=== PATIENT | male | born 1965 | race Caucasian/White ===

== ENCOUNTER 2016-04-22 07:51 | Day surgery (SDC) | payer MEDICAID ==
[~2016-04-22] VITALS: Ht 180.3 cm; Wt 80.9 kg
[~2016-04-22 07:51] MED LIST: CIPR-9 PO; CLIN150 PO; HYDR-3533 PO; PANT20 PO
[2016-04-22] MEDS ORDERED: CHLORHEXIDINE GLUCONATE 2 % 1 PACK (2 CLOTHS) TOPICAL SCH (08:30)
[2016-04-22] MEDS ORDERED: LEVOFLOXACIN 500 MG PREMIX INJ 100 ML IV SCH (08:30)
[2016-04-22] MEDS ORDERED: VANCOMYCIN 1000 MG/NS 250 ML - implanted port/tunneled catheter IV SCH ×2 (08:30)
[2016-04-22 08:50] VITALS: BP 168/92; PULSE 88; RESP 20; TEMP 98.3; O2SAT 97
[2016-04-22] MEDS ORDERED: PRED10 PO (09:00)
[2016-04-22] MEDS: POVIDONE IODINE 5% (ANTISEPSIS KIT) 4 APPLICATIONS EACH NARE SCH ×2 (09:12→09:13)
[2016-04-22] MEDS ORDERED: MIDAZOLAM HCL 5 MG/5 ML VIAL ONE (10:08)
[2016-04-22] MEDS ORDERED: fentaNYL CITRATE 250 MCG/5 ML AMP ONE (10:08)
[2016-04-22] MEDS ORDERED: LIDOCAINE 1%/EPINEPHrine 1:100,000 SOLN 20 ML VIAL ONE (10:12)
[2016-04-22 10:50] VITALS: BP 146/76; PULSE 85; RESP 18; TEMP 98.1; O2SAT 99
--- NOTE | 2016-04-22 10:57 | PD.RAD ---
Post Procedure Progress Note Pre Procedure Diagnosis: (1) Tongue mass Post Procedure Diagnosis: (1) Tongue mass Procedure Date: Apr 22, 2016 Supervising Radiologist: Josesito Payan Proceduralist/Assist: Ella Yarbrough, RT(R), Brenda Stewart RT(R)() Anesthesia: Conscious Sedation Plan of Activity Patient to Unit: ROPU Patient Condition: Good See PACS Report for procedural detail/treatment Central Venous Access Device Procedure 1 Right Infusaport Placement single lumen Josesito Payan MD Apr 22, 2016 10:57
[2016-04-22] MEDS ORDERED: SODIUM CHLORIDE 0.9% FLUSH 5 ML FLUSH IVF PRN (11:00)
[2016-04-22 11:05] VITALS: BP 142/87; PULSE 85; RESP 18; O2SAT 99
--- NOTE | 2016-04-22 11:10 | RADRPT ---
EXAM DATE/TIME: 04/22/2016 09:40 [facility] COMPARISON: CT SOFT TISSUE NECK W CONTRAST, January 15, 2016, 16:13. INDICATIONS : Patient with a history of head and neck cancer, needs chemotherapy. MEDICAL HISTORY : Duodenal ulcer disease Head and neck cancer Gastritis Gastric outlet obstruction SURGICAL HISTORY : Lymph node biopsy Tonsillectomy Corneal laceration repair Rt. hip surgery ENCOUNTER: Initial ACUITY: 3 months PAIN SCORE: 5/10 LOCATION: Neck FLUORO TIME: 0.3 minutes SEDATION TIME: 30 minutes ACCESS: Right internal jugular vein SEDATION: 1.) 1 mg midazolam (Versed) IV 2.) 50 mcg fentanyl (Sublimaze) IV Prophylactic antibiotics were administered with appropriate pre-procedure timing. Vancomycin within 2 hours of procedure, Ancef (or alternative) within 1 hour of procedure. DEVICE: 1. 8 Macedonian single lumen Bard Power Port PROCEDURE : 1. Continuous pulse oximetry and EKG monitoring. 2. Intravenous conscious sedation. 3. Ultrasound guidance for venous access. 4. Fluoroscopic guided implantable central venous port placement. The patient was placed supine. The neck was prepped in sterile fashion. Full sterile technique was u sed, including cap, mask, sterile gloves and gown, and a large sterile sheet. Hand hygiene and 2% ch lorhexidine Betadine was utilized per protocol for cutaneous antisepsis with appropriate dry time for site. The skin and subcutaneous tissues were infiltrated with local anesthetic solution. Under direct ultrasound guidance, central venous access was accomplished in the targeted vessel. The ultrasound images depicting access guidance were stored and saved to PACS for permanent record. A s ubcutaneous pocket was created using blunt dissection. The port was introduced to the pocket. The c atheter tubing was fed through a subcutaneous tunnel to the venotomy site. The catheter tubing was c ut to a suitable length and then was introduced through a valved Peel-Away sheath and positioned with catheter tubing tip at the cavo-atrial junction level. The pocket incision was closed with subcutic ular Vicryl suture. Steri-Strips were applied. The port was flushed and locked with heparin solutio n per protocol. Sterile dressing was applied to the site. The patient tolerated the procedure well. Conscious sedation was performed with the prescribed dosages and duration as above. The patient yvonne ated the procedure well and there were no complications. EKG and oximetry remained stable throughout the procedure. The patient was sent to post anesthesia recovery in stable condition. CONCLUSION: Uncomplicated ultrasound and fluoroscopic guided implanted central venous port catheter placement as described in detail above. An 8 Macedonian Power port was placed. Josesito Payan MD on April 22, 2016 at 11:08 Board Certified Radiologist. This report was verified electronically.
[2016-04-22 11:35] VITALS: BP 135/86; PULSE 73; RESP 20; O2SAT 99
[2016-04-22 12:05] VITALS: BP 117/48; PULSE 64; RESP 20; O2SAT 98
[2016-04-22] MEDS ORDERED: ACETAMINOPHEN/HYDROcodone 325 MG/5 MG TAB PO ONE (13:00)
== END 2016-04-22 13:00 | disposition home or self-care (01) ==
LOC: HROP 07:51 → HRIP 07:52 → HROP 13:00
PROVIDERS: ATTEND Internal Medicine Hematology & Oncology
DX: C76.0 Malignant neoplasm of head, face and neck (principal); K29.70 Gastritis, unspecified, without bleeding
CPT/HCPCS: 36561; 76937; 77001; C1788; J1642; J2250; J3010; J3370; J7050

== ENCOUNTER 2016-04-25 06:31 | Day surgery (SDC) | payer MEDICAID ==
[~2016-04-25] VITALS: Ht 180.3 cm; Wt 80.9 kg
[2016-04-25] VITALS (7 sets, daily range): BP systolic 108–138; BP diastolic 57–89; PULSE 45–66; RESP 18–20; TEMP 98.3; O2SAT 96–97
[~2016-04-25 06:31] MED LIST changes: -CLIN150 PO; -PANT20 PO; +PRED10 PO
[2016-04-25] MEDS ORDERED: SODIUM CHLORIDE 0.9% 1000 ML IV SCH (07:45)
[2016-04-25] MEDS ORDERED: LEVOFLOXACIN 500 MG PREMIX INJ 100 ML IV PRN (07:45)
[2016-04-25] MEDS ORDERED: MIDAZOLAM HCL 5 MG/5 ML VIAL ONE (08:35)
[2016-04-25] MEDS ORDERED: fentaNYL CITRATE 250 MCG/5 ML AMP ONE (08:36)
[2016-04-25] MEDS ORDERED: GLUCAGON 1 MG/ML VIAL ONE (08:36)
--- NOTE | 2016-04-25 09:28 | PD.RAD ---
Post Procedure Progress Note Pre Procedure Diagnosis: (1) Tongue mass Post Procedure Diagnosis: (1) Tongue mass Procedure Date: Apr 25, 2016 Supervising Radiologist: Josesito Payan Proceduralist/Assist: Brenda Zavala RT(R), RT Martha(R)() Anesthesia: Conscious Sedation Plan of Activity Patient to Unit: ROPU Patient Condition: Good See PACS Report for procedural detail/treatment Feeding Tube Gastrostomy Placement Josesito Payan MD Apr 25, 2016 09:28
[2016-04-25] MEDS ORDERED: IOHEXOL 350 MG/ML 50 ML BTL (for RAD DIAG) G-TUBE ONE (09:43)
--- NOTE | 2016-04-25 09:43 | RADRPT ---
EXAM DATE/TIME: 04/25/2016 08:19 [facility] COMPARISON: No previous studies available for comparison. INDICATIONS : Patient with history of head and neck cancer in need of gastrostomy tube placement. MEDICAL HISTORY : 1.Head and neck cancer 2.Gastric outlet obstruction 3.Duodenal Ulcer 4.Gastritis SURGICAL HISTORY : 1.Right port placement 2.Endoscopy 3.Lymphnode biopsy 4.Laryngoscopy 5.Corneal lacration repair 6.Tonsillectomy 7.Tibial/Fibula repair ENCOUNTER: Subsequent ACUITY: 2 months PAIN SCORE: 0/10 FLUORO TIME: 0.3 minutes SEDATION TIME: 30 minutes CONTRAST: 15 cc Omnipaque (iohexol) 350 MEDICATION(S): 1.) 1 mcg fentanyl (Sublimaze) IV 2.) 100 mg midazolam (Versed) IV Intra-procedural antibiotics were given as prescribed above. DEVICE(S): 1.) 18 Fr gastrostomy tube PROCEDURE : 1. Limited abdominal ultrasound. 2. Fluoroscopically guided gastrostomy tube placement. 3. Conscious sedation with continuous EKG and oximetry monitoring. The risks, benefits and alternatives to the procedure were explained and verbal and written consent w as obtained. The site was prepped in sterile fashion. Full sterile technique was used, including ca p, mask, sterile gloves and gown and a large sterile sheet. Hand hygiene and 2% chlorhexidine and/or betadine/alcohol prep was utilized per protocol for cutaneous antisepsis. The skin and subcutaneous tissues were infiltrated with local anesthetic solution. Ultrasound was used to chiquita the position of the liver. The stomach was insufflated with room air. Th ree percutaneous fasteners were placed to secure the anterior gastric wall. A small incision was made between the fasteners. The stomach was accessed with an 18 gauge needle. A n 0.035 wire was advanced into the small bowel. The tract was dilated. The gastrostomy tube was int roduced through a peel-away sheath. The position was confirmed with an injection of contrast. Conscious sedation was performed with the prescribed dosages and duration as above. The patient yvonne ated the procedure well and there were no complications. EKG and oximetry remained stable throughout the procedure. The patient was sent to post anesthesia recovery in stable condition. CONCLUSION: Uncomplicated gastrostomy tube placement as above. Joessito Payan MD on April 25, 2016 at 9:42 Board Certified Radiologist. This report was verified electronically.
== END 2016-04-25 11:35 | disposition home or self-care (01) ==
LOC: HROP 06:31 → HRIP 06:32 → HROP 11:35
PROVIDERS: ATTEND Internal Medicine Hematology & Oncology
DX: C01 Malignant neoplasm of base of tongue (principal)
CPT/HCPCS: 49440; 76942; 99152; 99153; C1769; C1887; J1610; J1956; J2250; J3010; Q9967

== ENCOUNTER 2016-05-08 20:49 | Inpatient (IN) | payer MEDICAID ==
[~2016-05-08] VITALS: Ht 177.8 cm; Wt 73.4 kg
[2016-05-08 20:52] VITALS: BP 119/86; PULSE 114; RESP 22; TEMP 100.9; O2SAT 98
[2016-05-08] MEDS ORDERED: SODIUM CHLOR 0.9% 1000 ML INJ 1,000 ML IV ONE ×3 (20:56→23:00)
[2016-05-08 20:59] VITALS: RESP 17; O2SAT 97
[2016-05-08] MEDS ORDERED: ONDANSETRON HCL 4 MG/2 ML VIAL IVP ONE (21:00)
[2016-05-08] MEDS ORDERED: MORPHINE SULFATE 4 MG/ML INJ IV ONE (21:00)
[2016-05-08] MEDS ORDERED: SODIUM CHLORIDE 0.9% FLUSH 5 ML FLUSH IVF PRN (21:00)
[2016-05-08] MEDS ORDERED: ACETAMINOPHEN 325 MG TAB PO ONE (21:15)
--- NOTE | 2016-05-08 21:15 | PD ---
HPI Chief Complaint: GI Complaint Time Seen by Provider: 20:56 Travel History International Travel<30 days: No Contact w/Intl Traveler<30days: No Traveled to known affect area: No History of Present Illness HPI The patient is a 50-year-old male who presents to the emergency department via EMS for fever, nausea, vomiting, and diarrhea. The patient has a history of HPV throat cancer and is currently undergoing chemotherapy by his oncologist, Dr. Lindsay. The patient states his last dose of chemotherapy was last Friday, he is scheduled for chemotherapy next week. The patient denies any history of radiation therapy. The patient does complain of a 2 to three- day history of nausea, vomiting, and diarrhea with left lower quadrant abdominal pain that is now generalized. The patient states his diarrhea as loose, watery, brown, without any visible blood. The patient denies any history of clostridium difficile. The patient has been using the G-tube sporadically secondary to decreased swallowing, however, has not been using the G-tube today secondary to increasing pain. The patient's primary physician is Dr. Chopra. PFSH Past Medical History Cancer: Yes (LYMPHOMA) Cardiovascular Problems: No Chemotherapy: Yes (05/06/16) Diminished Hearing: No Endocrine: No Gastrointestinal Disorders: Yes (OCCASIONAL ABD PAINS - ULCER IN LARGE INTESTINE) Genitourinary: No Immune Disorder: No Musculoskeletal: No Neurologic: No Psychiatric: No Reproductive: No Immunizations Current: Yes Ulcer: Yes Tetanus Vaccination: < 5 Years Influenza Vaccination: No Past Surgical History AICD: No Eye Surgery: Yes (CORNEAL LAC REPAIR) Joint Replacement: No Pacemaker: No Tonsillectomy: Yes Other Surgery: Yes (PORT AND G TUBE) Social History Alcohol Use: No Tobacco Use: Yes (2PPD) Substance Use: No Allergies-Medications (Allergen,Severity, Reaction): Coded Allergies: Codeine (Verified Allergy, Intermediate, Hives, 05/08/16) Keflex (Unverified Allergy, Unknown, Hives, 05/08/16) Penicillin (Verified Allergy, Unknown, Hives, 05/08/16) *MDRO Multi-Drug Resistant Organism (Unverified Adverse Reaction, Unknown , MRSA, 05/08/16) MRSA (foot wound) - 10/2014, 03/17/16 Reported Meds & Prescriptions Reported Meds & Active Scripts Active Cipro (Ciprofloxacin HCl) 500 Mg Tab 500 Mg PO BID Lortab (Hydrocodone-Acetaminophen) 5-325 Mg Tab 1 Tab PO Q4H PRN Reported Prednisone 10 Mg Tab 10 Mg PO BID Review of Systems Except as stated in HPI: all other systems reviewed are Neg General / Constitutional: Positive: Fever (fever of 100.5 at home) HENT: No: Headaches Cardiovascular: No: Chest Pain or Discomfort Respiratory: No: Cough, Shortness of Breath Gastrointestinal: Positive: Nausea, Vomiting, Diarrhea, Abdominal Pain Genitourinary: No: Dysuria Musculoskeletal: Positive: Weakness Skin: No Rash Physical Exam Narrative GENERAL: Awake, alert, 50-year-old male who appears his stated age and is in no acute respiratory distress. SKIN: Warm and dry. HEAD: Atraumatic. Normocephalic. EYES: The left pupil is irregular from previous injury. The right pupil 3 mm and reactive. ENT: No nasal bleeding or discharge. Dry mucous membranes. NECK: Trachea midline. No JVD. CARDIOVASCULAR: Regular, tachycardic with a heart rate of 120. RESPIRATORY: No accessory muscle use. Clear to auscultation. Breath sounds equal bilaterally. GASTROINTESTINAL: Abdomen soft, G-tube in place. Left lower quadrant tenderness , but no significant tympany, rebound tenderness, or guarding. No rigidity noted. MUSCULOSKELETAL: No obvious deformities. No clubbing. No cyanosis. No edema. NEUROLOGICAL: Awake and alert. No obvious cranial nerve deficits. Motor grossly within normal limits. Normal speech. PSYCHIATRIC: Appropriate mood and affect; insight and judgment normal. Data Data Last Documented VS Vital Signs Date Time Temp Pulse Resp B/P Pulse Ox O2 Delivery O2 Flow Rate FiO2 05/08/16 22:40 16 05/08/16 21:59 104 138/87 95 Room Air 05/08/16 20:52 100.9 Orders Complete Blood Count With Diff (05/08/16 20:56) Comprehensive Metabolic Panel (05/08/16 20:56) Urinalysis - C+S If Indicated (05/08/16 20:56) Lipase (05/08/16 20:56) Ct Abd/Pel W/O Iv Contrast (05/08/16 ) Iv Access Insert/Monitor (05/08/16 20:56) Ecg Monitoring (05/08/16 20:56) Oximetry (05/08/16 20:56) Morphine Inj (Morphine Inj) (05/08/16 21:00) Ondansetron Inj (Zofran Inj) (05/08/16 21:00) Sodium Chlor 0.9% 1000 Ml Inj (Ns 1000 M (05/08/16 20:56) Sodium Chloride 0.9% Flush (Ns Flush) (05/08/16 21:00) C Diff Toxin Pcr (05/08/16 20:56) Enteric Path (Stool) (05/08/16 20:56) Chest, Single Ap (05/08/16 20:56) Acetaminophen (Tylenol) (05/08/16 21:15) Blood Culture (05/08/16 21:15) Lactic Acid (05/08/16 21:15) Influenzae A/B Antigen (05/08/16 21:15) Acetaminophen 650 Mg/20 Ml Liq (Tylenol (05/08/16 21:30) Ciprofloxacin 400 Mg Premix (Cipro 400 M (05/08/16 21:45) Metronidazole 500 Mg Inj (Flagyl 500 Mg (05/08/16 21:45) Sodium Chlor 0.9% 1000 Ml Inj (Ns 1000 M (05/08/16 22:45) Admit Order (Ed Use Only) (05/08/16 22:51) Sodium Chlor 0.9% 1000 Ml Inj (Ns 1000 M (05/08/16 23:00) Labs Laboratory Tests Test 05/08/16 21:45 White Blood Count 0.8 TH/MM3 Red Blood Count 5.10 MIL/MM3 Hemoglobin 15.4 GM/DL Hematocrit 45.3 % Mean Corpuscular Volume 88.9 FL Mean Corpuscular Hemoglobin 30.1 PG Mean Corpuscular Hemoglobin 33.9 % Concent Red Cell Distribution Width 12.6 % Platelet Count 97 TH/MM3 Mean Platelet Volume 8.9 FL Neutrophils (%) (Auto) % Lymphocytes (%) (Auto) % Monocytes (%) (Auto) % Eosinophils (%) (Auto) % Basophils (%) (Auto) % Neutrophils # (Auto) TH/MM3 Lymphocytes # (Auto) TH/MM3 Monocytes # (Auto) TH/MM3 Eosinophils # (Auto) TH/MM3 Basophils # (Auto) TH/MM3 CBC Comment AUTO DIFF Sodium Level 134 MEQ/L Potassium Level 3.6 MEQ/L Chloride Level 96 MEQ/L Carbon Dioxide Level 29.7 MEQ/L Anion Gap 8 MEQ/L Blood Urea Nitrogen 28 MG/DL Creatinine 1.08 MG/DL Estimat Glomerular Filtration 72 ML/MIN Rate Random Glucose 128 MG/DL Lactic Acid Level 1.9 mmol/L Calcium Level 9.1 MG/DL Total Bilirubin 1.3 MG/DL Aspartate Amino Transf 14 U/L (AST/SGOT) Alanine Aminotransferase 26 U/L (ALT/SGPT) Alkaline Phosphatase 103 U/L Total Protein 6.7 GM/DL Albumin 3.0 GM/DL Lipase 61 U/L MDM Medical Decision Making Medical Screen Exam Complete: Yes Emergency Medical Condition: Yes Medical Record Reviewed: Yes Interpretation(s) Last Impressions Chest X-Ray 05/08/162055 Signed Impressions: Service Date/Time: Sunday, May 08, 2016 21:14 - CONCLUSION: No acute disease. Lance Short MD Abdomen/Pelvis CT 05/08/16 0000 Signed Impressions: Service Date/Time: Sunday, May 08, 2016 21:09 - CONCLUSION: 1. Minimal inflammation involving the ascending colon where there is a large diverticula likely diverticulitis. There is also slight wall thickening of the ascending colon. There 2. Punctate nonobstructing bilateral renal calculi measuring to 3 mm. 3. Right kidney slightly atrophic containing renal cysts. 4. Percutaneous gastrostomy tube. Lance Short MD Laboratory Tests Test 05/08/16 21:45 White Blood Count 0.8 TH/MM3 Red Blood Count 5.10 MIL/MM3 Hemoglobin 15.4 GM/DL Hematocrit 45.3 % Mean Corpuscular Volume 88.9 FL Mean Corpuscular Hemoglobin 30.1 PG Mean Corpuscular Hemoglobin 33.9 % Concent Red Cell Distribution Width 12.6 % Platelet Count 97 TH/MM3 Mean Platelet Volume 8.9 FL Neutrophils (%) (Auto) % Lymphocytes (%) (Auto) % Monocytes (%) (Auto) % Eosinophils (%) (Auto) % Basophils (%) (Auto) % Neutrophils # (Auto) TH/MM3 Lymphocytes # (Auto) TH/MM3 Monocytes # (Auto) TH/MM3 Eosinophils # (Auto) TH/MM3 Basophils # (Auto) TH/MM3 CBC Comment AUTO DIFF Sodium Level 134 MEQ/L Potassium Level 3.6 MEQ/L Chloride Level 96 MEQ/L Carbon Dioxide Level 29.7 MEQ/L Anion Gap 8 MEQ/L Blood Urea Nitrogen 28 MG/DL Creatinine 1.08 MG/DL Estimat Glomerular Filtration 72 ML/MIN Rate Random Glucose 128 MG/DL Lactic Acid Level 1.9 mmol/L Calcium Level 9.1 MG/DL Total Bilirubin 1.3 MG/DL Aspartate Amino Transf 14 U/L (AST/SGOT) Alanine Aminotransferase 26 U/L (ALT/SGPT) Alkaline Phosphatase 103 U/L Total Protein 6.7 GM/DL Albumin 3.0 GM/DL Lipase 61 U/L Differential Diagnosis Differential diagnosis includes influenza, gastroenteritis, dehydration, sepsis , pneumonia, Clostridium difficile, chemotherapy side effect, pyelonephritis, electrolyte abnormality. Narrative Course IV was established, labs were drawn and sent, and the patient was placed on cardiac telemetry monitoring and continuous pulse oximetry monitoring. The patient was administered morphine, Zofran, and IV fluids. Blood culture and lactic acid were sent to lab. The patient was administered Tylenol via the G- tube for his fever. CT the abdomen and pelvis was ordered to evaluate for colitis. Influenza screen was sent to lab. CT of the abdomen and pelvis reveals diverticulitis. White count is low at 0.8, last white count was 1.0 performed on May 08, however, previous ones were normal. Patient is status post chemotherapy, according to Dr. Lindsay's note, 5-FU, Taxotere, and cisplatin. Therefore, patient was administered Cipro and Flagyl for diverticulitis, no cefepime was provided as the patient is allergic to Keflex. The patient was also administered IV fluids as he had a BUN of 28 and creatinine 1 with visible signs of dehydration. I discussed patient with Dr. Melo who is on-call for Dr. Lindsay, the patient will be admitted to the medical service. The patient's primary physician is Dr. Chopra, therefore , [facility] were paged for admission. The patient is comfortable with this plan of care and disposition. Sepsis Criteria SIRS Criteria (2 or more): Heart rate over 90, WBC > 40841, < 4000 or > 10% bands Sepsis Criteria (SIRS+source): Infect source susp/known Criteria Outcome: Meets sepsis criteria Physician Communication Physician Communication [facility] hospitalists were paged for admission. I discussed the patient with Casey MARQUEZ who agrees with admission to Dr. Cisse. Diagnosis Primary Impression: Diverticulitis large intestine Qualified Code: K57.32 - Diverticulitis of large intestine without perforation or abscess without bleeding Additional Impressions: Immunocompromised patient Dehydration Admitting Information Admitting Physician Requests: Admit Condition: Stable Zeferino Doe MD May 08, 2016 21:15
--- NOTE | 2016-05-08 21:21 | RADRPT ---
EXAM DATE/TIME: 05/08/2016 21:09 [facility] COMPARISON: No previous studies available for comparison. INDICATIONS : Abdominal pain with nausea, vomiting and diarrhea. ORAL CONTRAST: No oral contrast ingested. RADIATION DOSE: 5.24 CTDIvol (mGy) MEDICAL HISTORY : Lymphoma. Ulcers. MRSA. SURGICAL HISTORY : Port placement. G-tube placement. Right hip replacement. ENCOUNTER: Initial ACUITY: 1 day PAIN SCALE: 3/10 LOCATION: Bilateral lower quadrant TECHNIQUE: Volumetric scanning of the abdomen and pelvis was performed. Using automated exposure control and ad justment of the mA and/or kV according to patient size, radiation dose was kept as low as reasonably achievable to obtain optimal diagnostic quality images. FINDINGS: LOWER LUNGS: The visualized lower lungs are clear. LIVER: Homogeneous density without lesion. There is no dilation of the biliary tree. No calcified gallston es. SPLEEN: Normal size without lesion. PANCREAS: Within normal limits. KIDNEYS: Right kidney slightly atrophic. Several cysts involving the right kidney.. There is no mass or hydro nephrosis. Bilateral renal low densities. Punctate bilateral nonobstructing renal calculi. ADRENAL GLANDS: Within normal limits. VASCULAR: There is no aortic aneurysm. BOWEL/MESENTERY: Percutaneous gastrostomy tube. No dilated bowel loops. There is minimal inflammation adjacent to a la rge diverticula in the cecum. Slight wall thickening of ascending colon. Appendix is normal. There is no free intraperitoneal air or fluid. ABDOMINAL WALL: Within normal limits. RETROPERITONEUM: There is no lymphadenopathy. BLADDER: No wall thickening or mass. REPRODUCTIVE: Within normal limits. INGUINAL: There is no lymphadenopathy or hernia. MUSCULOSKELETAL: Within normal limits for patient age. CONCLUSION: 1. Minimal inflammation involving the ascending colon where there is a large diverticula likely diver ticulitis. There is also slight wall thickening of the ascending colon. There 2. Punctate nonobstructing bilateral renal calculi measuring to 3 mm. 3. Right kidney slightly atrophic containing renal cysts. 4. Percutaneous gastrostomy tube. Lance Short MD on May 08, 2016 at 21:17 Board Certified Radiologist. This report was verified electronically.
[2016-05-08] MEDS ORDERED: ACETAMINOPHEN 650 MG/20.3 ML UDC PO ONE (21:30)
[2016-05-08] MEDS ORDERED: CIPROFLOXACIN 400 MG PREMIX 200 ML IV ONE (21:45)
[2016-05-08] MEDS ORDERED: metroNIDAZOLE 500 MG INJ 100 ML IV ONE (21:45)
[2016-05-08 21:59] VITALS: BP 138/87; PULSE 104; RESP 16; O2SAT 95
--- NOTE | 2016-05-08 22:05 | RADRPT ---
EXAM DATE/TIME: 05/08/2016 21:14 [facility] COMPARISON: No previous studies available for comparison. INDICATIONS : Fever starting today MEDICAL HISTORY : Lymphoma. Ulcers. MRSA. SURGICAL HISTORY : Port placement. G-tube placement. Right hip replacement ENCOUNTER: Initial ACUITY: 1 day PAIN SCORE: 0/10 LOCATION: Bilateral chest FINDINGS: A single view of the chest demonstrates the lungs to be symmetrically aerated without evidence of mas s, infiltrate or effusion. [id number] catheter with tip in the cavoatrial junction. The cardiomed iastinal contours are unremarkable. Osseous structures are intact. CONCLUSION: No acute disease. Lance Short MD on May 08, 2016 at 22:03 Board Certified Radiologist. This report was verified electronically.
[2016-05-08 22:16] LABS: HEMATOCRIT 45.3 % (39.0-51.0); MEAN CELL VOLUME 88.9 FL (80.0-100.0); MEAN CORPUSCULAR HEMOGLOBIN 30.1 PG (27.0-34.0); MEAN CORPUSCULAR HGB CONC 33.9 % (32.0-36.0); PLATELET COUNT 97 TH/MM3 (150-450); RED CELL DISTRIBUTION WIDTH 12.6 % (11.6-17.2); WHITE BLOOD COUNT 0.8 TH/MM3 (4.0-11.0)
[2016-05-08 22:19] LABS: HEMO FLAGS AUTO DIFF
[2016-05-08 22:27] LABS: ALT (GPT) 26 U/L (12-78); ANION GAP 8 MEQ/L (5-15); AST (GOT) 14 U/L (15-37); BICARBONATE 29.7 MEQ/L (21.0-32.0); BLOOD UREA NITROGEN 28 MG/DL (7-18); CHLORIDE 96 MEQ/L (98-107); GLOMERULAR FILTRATION RATE 72 ML/MIN (>89); POTASSIUM 3.6 MEQ/L (3.5-5.1); SODIUM (NA) 134 MEQ/L (136-145)
[2016-05-08 22:30] LABS: ALKALINE PHOSPHATASE 103 U/L (45-117); TOTAL BILIRUBIN ADULT 1.3 MG/DL (0.2-1.0)
[2016-05-08] MEDS ORDERED: TEMAZEPAM 15 MG CAP PO PRN (23:00)
[2016-05-08] MEDS ORDERED: SODIUM CHLORIDE 0.9% FLUSH 5 ML FLUSH FLUSH PRN (23:00)
[2016-05-08] MEDS ORDERED: NALOXONE HCL 0.4 MG/ML AMP IV PRN (23:00)
[2016-05-08] MEDS ORDERED: HEPARIN SODIUM - SQ 10,000 UNITS/ML VIAL SQ SCH (23:00)
[2016-05-08] MEDS ORDERED: ACETAMINOPHEN 325 MG TAB PO PRN (23:00)
[2016-05-08] MEDS ORDERED: ONDANSETRON HCL 4 MG/2 ML VIAL IVP PRN (23:00)
[2016-05-08 23:05] LABS: BANDS 13 % (0-6); METAMYELOCYTES 2 % (0-1); NEUTROPHIL # MANUAL DIFF 0.2 TH/MM3 (1.8-7.7); POLYS (SEG NEUTROPHILS) 15 % (16-70); WBC DIFF SAMPLE 100
[2016-05-08 23:08] LABS: ACANTHOCYTES OCC (NORMAL); OVALOCYTES 1+ (NORMAL); PLATELET ESTIMATE SMEAR LOW (NORMAL); PLATELET MORPHOLOGY NORMAL (NORMAL); SCAN/DIFF FINAL DIFF MANUAL
[2016-05-09] VITALS (7 sets, daily range): BP systolic 119–145; BP diastolic 61–94; PULSE 67–99; RESP 14–18; TEMP 98.2–100; O2SAT 94–98
[2016-05-09] MEDS: SODIUM CHLOR 0.9% 1000 ML INJ 1,000 ML IV SCH ×3 (00:46→18:52)
[2016-05-09] MEDS: FAMOTIDINE 20 MG/2 ML VIAL IV PUSH SCH ×3 (00:46→23:19)
[2016-05-09 04:16] LABS: BACTERIA, URINE RARE /hpf; BLOOD, URINE TRACE (NEG); GLUCOSE,URINE NEG (NEG); HYALINE CAST, URINE 1 /lpf (RARE); KETONE, URINE NEG (NEG); MUCUS URINE FEW /lpf (OCC); NITRITE,URINE NEG (NEG); PH, URINE 5.5 (5.0-8.5); SQUAMOUS EPITHELIAL CELL URINE <1 /hpf (0-5); TRANSITIONAL EPI CELLS, URINE <1 /hpf; URINE COLOR YELLOW (YELLW/STRAW)
[2016-05-09 04:17] LABS: COMMENT (UR) CULT NOT INDICATED; CULTURE IF INDICATED CULT NOT INDICATED
[2016-05-09 05:48] LABS: HEMATOCRIT 38.2 % (39.0-51.0); MEAN CELL VOLUME 89.1 FL (80.0-100.0); MEAN CORPUSCULAR HEMOGLOBIN 30.9 PG (27.0-34.0); MEAN CORPUSCULAR HGB CONC 34.6 % (32.0-36.0); PLATELET COUNT 75 TH/MM3 (150-450); RED BLOOD COUNT 4.29 MIL/MM3 (4.50-5.90); WHITE BLOOD COUNT 0.6 TH/MM3 (4.0-11.0)
[2016-05-09] MEDS: metroNIDAZOLE 500 MG INJ 100 ML IV SCH ×3 (06:03→22:23)
[2016-05-09 06:05] LABS: HEMO FLAGS AUTO DIFF
[2016-05-09 06:06] LABS: C. DIFF EPI 027 PRESUMPTIVE NEGATIVE (NEGATIVE); C. DIFF TOXIN PCR NEGATIVE (NEGATIVE)
[2016-05-09 06:07] LABS: BICARBONATE 26.6 MEQ/L (21.0-32.0); POTASSIUM 3.7 MEQ/L (3.5-5.1)
[2016-05-09 07:01] LABS: BANDS 8 % (0-6); EOSINOPHILS 2 % (0-4); POLYS (SEG NEUTROPHILS) 20 % (16-70); WBC DIFF SAMPLE 50
[2016-05-09 07:05] LABS: NEUTROPHIL # MANUAL DIFF 0.2 TH/MM3 (1.8-7.7); PLATELET ESTIMATE SMEAR LOW (NORMAL); PLATELET MORPHOLOGY NORMAL (NORMAL); SCAN/DIFF FINAL DIFF MANUAL
[2016-05-09 07:06] LABS: OVALOCYTES 1+ (NORMAL); TEARDROP RBCS 1+ (NORMAL)
[2016-05-09] MEDS: SODIUM CHLORIDE 0.9% FLUSH 5 ML FLUSH FLUSH SCH ×2 (09:00→22:46)
--- NOTE | 2016-05-09 09:33 | HHI.HP ---
HPI Service [facility] Primary Care Physician Unknown Admission Diagnosis diverticulitis, leukopenia, immunocompromised, sepsis Diagnoses: Chief Complaint: abdominal pain (Karma David) Travel History International Travel<30 Days: No Contact w/Intl Traveler <30 Da: No Traveled to Known Affected Are: No (Karma David) History of Present Illness This is a 50-year-old male with recent diagnoses of head and neck cancer, HPV positive, recently started on chemotherapy approximately a week ago. Oncologist is Dr. Lindsay. Patient is also due to have radiation. Patient had progressive dysphagia, had a PEG tube placed. According to patient, he had his first chemotherapy a week ago. He presented to the emergency room with history of 2-3 days of nausea, vomiting, diarrhea, with left lower quadrant abdominal pain. Indicates abdominal pain is crampy, diarrhea is watery brown. There is no blood. No hematemesis. No fever, no chills. No prior history of C. difficile, no sick contacts, no recent travel. He had been prescribed Cipro by his oncologist. He has not been taking very much orally, he has a G-tube. Usually he takes approximately 2-3 cans of Jevity a day, he hasn't had any today. In the emergency room, patient was evaluated and laboratory workup was completed. Patient laboratory workup was significant for leukopenia, WBC 0.8, platelet count of 97. Hemoglobin 15.4, hematocrit 45.3. He was noted dehydrated, B1 28, creatinine 1.08. Stools for C. difficile were negative. Chest x-ray did not show any acute findings. Abdomen and pelvis CT done, showing diverticulitis Last Impressions Chest X-Ray 05/08/[id number] Signed Impressions: Service Date/Time: Sunday, May 08, 2016 21:14 - CONCLUSION: No acute disease. Lance Short MD Abdomen/Pelvis CT 05/08/16 0000 Signed Impressions: Service Date/Time: Sunday, May 08, 2016 21:09 - CONCLUSION: 1. Minimal inflammation involving the ascending colon where there is a large diverticula likely diverticulitis. There is also slight wall thickening of the ascending colon. There 2. Punctate nonobstructing bilateral renal calculi measuring to 3 mm. 3. Right kidney slightly atrophic containing renal cysts. 4. Percutaneous gastrostomy tube. Lance Short MD Patient was started on empiric antibiotics, he has not had any vomiting since arriving to emergency room. He's had some chills and fever. He has been coughing, mucus is clear. Denies any chest pain, no shortness of breath. His mouth is very sore and he has trouble swallowing and can only tolerate liquids. Patient is admitted for further evaluation and treatment. (Karma David) Review of Systems Constitutional: COMPLAINS OF: Fever, Chills, Change in appetite, DENIES: Diaphoretic episodes, Fatigue, Weight gain, Weight loss, Dizziness, Night Sweats Endocrine: DENIES: Heat/cold intolerance, Polydipsia, Polyuria, Polyphagia Eyes: DENIES: Blurred vision, Diplopia, Eye inflammation, Eye pain, Vision loss , Photosensitivity, Double Vision Ears, nose, mouth, throat: DENIES: Tinnitus, Hearing loss, Vertigo, Nasal discharge, Oral lesions, Throat pain, Hoarseness, Ear Pain, Running Nose, Epistaxis, Sinus Pain, Toothache, Odynophagia Respiratory: COMPLAINS OF: Cough, Sputum production, DENIES: Apneas, Snoring, Wheezing, Hemoptysis, Shortness of breath Cardiovascular: DENIES: Chest pain, Palpitations, Syncope, Dyspnea on Exertion , PND, Lower Extremity Edema, Orthopnea, Claudication Gastrointestinal: COMPLAINS OF: Abdominal pain, Diarrhea, Nausea, Vomiting, Difficulty Swallowing, Anorexia, DENIES: Black stools, Bloody stools, Constipation Genitourinary: DENIES: Sexual dysfunction, Urinary frequency, Urinary incontinence, Urgency, Hematuria, Dysuria, Nocturia, Penile Discharge, Testicular Pain, Testicular Swelling Musculoskeletal: DENIES: Joint pain, Muscle aches, Stiffness, Joint Swelling, Back pain, Neck pain Integumentary: DENIES: Abnormal pigmentation, Nail changes, Pruritus, Rash Hematologic/lymphatic: DENIES: Bruising, Lymphadenopathy Immunologic/allergic: DENIES: Eczema, Urticaria Neurologic: DENIES: Abnormal gait, Headache, Localized weakness, Paresthesias, Seizures, Speech Problems, Tremor, Poor Balance Psychiatric: DENIES: Anxiety, Confusion, Mood changes, Depression, Hallucinations, Agitation, Suicidal Ideation, Homicidal Ideation, Delusions ( Karma David) Past Family Social History Past Medical History Duodenal ulcer disease, status post upper endoscopy and biopsy February 2015 Diagnosed with head and neck cancer January 2016 Prior tobacco abuse Past Surgical History PEG tube placement Port placement Upper endoscopy January 2016 Right cervical node biopsy January 2016 Tonsillectomy Left corneal laceration requiring repair Tib-fib fracture requiring repair Reported Medications Reported Meds & Active Scripts Active Cipro (Ciprofloxacin HCl) 500 Mg Tab 500 Mg PO BID Lortab (Hydrocodone-Acetaminophen) 5-325 Mg Tab 1 Tab PO Q4H PRN Reported Prednisone 10 Mg Tab 10 Mg PO BID (Karma David) Allergies: Coded Allergies: Codeine (Verified Allergy, Intermediate, Hives, 05/08/16) Keflex (Unverified Allergy, Unknown, Hives, 05/08/16) Penicillin (Verified Allergy, Unknown, Hives, 05/08/16) *MDRO Multi-Drug Resistant Organism (Unverified Adverse Reaction, Unknown , MRSA, 05/08/16) MRSA (foot wound) - 10/2014, 03/17/16 Active Ordered Medications Inpatient Medications Acetaminophen (Tylenol) 650 mg Q4H PRN PO TEMP > 100.4; Start 05/08/16 at 23:00 Acetaminophen 650 mg 650 mg ONCE ONCE PO Last administered on 05/08/16 21:57; Start 05/08/16 at 21:30; Stop 05/08/16 at 21:31; Status DC Ciprofloxacin/ Dextrose 200 ml @ 200 mls/hr Q12H IV ; Start 05/09/16 at 12:00 Famotidine (Pepcid Inj) 20 mg Q12H IV PUSH Last administered on 05/09/16 00:46 ; Start 05/08/16 at 23:00 Heparin Sodium (Porcine) (Heparin Inj) 5,000 units Q12H SQ Last administered on 05/09/16 00:47; Start 05/08/16 at 23:00 IV Flush (NS Flush) 2 ml BID FLUSH ; Start 05/09/16 at 09:00 Metronidazole (Flagyl 500 Mg Inj) 100 ml @ 100 mls/hr Q8H IV Last administered on 05/09/16 06:03; Start 05/09/16 at 06:00 Morphine Sulfate (Morphine Inj) 4 mg ONCE ONCE IV Last administered on 21:57; Start 05/08/16 at 21:00; Stop 05/08/16 at 21:01; Status DC Naloxone HCl 0.4 mg 0.4 mg UNSCH PRN IV SEE LABEL COMMENTS; Start 05/08/16 at 23 :00 Ondansetron HCl (Zofran Inj) 4 mg Q6H PRN IVP NAUSEA OR VOMITING; Start at 23:00 Sodium Chloride (NS 1000 ml Inj) 1,000 ml @ 100 mls/hr Q10H IV Last administered on 05/09/16t 00:46; Start 05/08/16 at 22:51 Temazepam (Restoril) 15 mg HS PRN PO INSOMNIA; Start 05/08/16 at 23:00 Family History Doesn't know much about parents medical history, both parents are Social History 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 He was a heavy tobacco user, smoked 1 pack a day for 30 years. Quit smoking recently. No alcohol. No substance abuse. (Karma David) Physical Exam Vital Signs Vital Signs Date Time Temp Pulse Resp B/P Pulse Ox O2 Delivery O2 Flow Rate FiO2 05/09/16 06:50 21 05/09/16 04:00 84 16 125/81 96 Room Air 05/09/16 02:04 78 16 127/61 98 Room Air 05/09/16 00:00 99.6 77 16 121/74 97 Room Air 05/08/16 22:40 16 05/08/16 22:40 16 05/08/16 21:59 104 16 138/87 95 Room Air 05/08/16 21:06 16 05/08/16 20:59 17 97 Room Air 05/08/16 20:52 100.9 114 22 119/86 98 Physical Exam GENERAL: This is a well-nourished, well-developed patient, in no apparent distress. SKIN: No rashes, ecchymoses or lesions. Cool and dry. HEAD: Atraumatic. Normocephalic. No temporal or scalp tenderness. EYES: Left pupil irregular, previous surgery. Right pupil. Extraocular motions intact. No scleral icterus. No injection or drainage. ENT: Nose without bleeding, purulent drainage or septal hematoma. Oropharynx erythematous, tongue slightly swollen, fixed. Uvula midline. Airway patent. NECK: Trachea midline. Bilateral lymphadenopathy. Supple, nontender, no meningeal signs. CARDIOVASCULAR: Regular rate and rhythm without murmurs, gallops, or rubs. RESPIRATORY: Diminished at bases GASTROINTESTINAL: Diffuse abdominal tenderness with increased tenderness to the left lower abdomen, nondistended, bowel sounds normoactive 4. PEG tube in place. Crusty drainage around insertion site. MUSCULOSKELETAL: Extremities without clubbing, cyanosis, or edema. No joint tenderness, effusion, or edema noted. No calf tenderness. Negative Homans sign bilaterally. NEUROLOGICAL: Awake, alert oriented 3. Has difficulty talking, speech at times muffled. Laboratory Laboratory Tests Test 05/08/16 05/09/16 05/09/16 21:45 02:10 05:00 White Blood Count 0.8 0.6 Red Blood Count 5.10 4.29 Hemoglobin 15.4 13.2 Hematocrit 45.3 38.2 Mean Corpuscular Volume 88.9 89.1 Mean Corpuscular Hemoglobin 30.1 30.9 Mean Corpuscular Hemoglobin 33.9 34.6 Concent Red Cell Distribution Width 12.6 13.0 Platelet Count 97 75 Mean Platelet Volume 8.9 8.4 Neutrophils (%) (Auto) Lymphocytes (%) (Auto) Monocytes (%) (Auto) Eosinophils (%) (Auto) Basophils (%) (Auto) Neutrophils # (Auto) Lymphocytes # (Auto) Monocytes # (Auto) Eosinophils # (Auto) Basophils # (Auto) CBC Comment AUTO DIFF AUTO DIFF Differential Total Cells 100 50 Counted Neutrophils % (Manual) 15 20 Band Neutrophils % 13 8 Lymphocytes % 48 30 Monocytes % 22 40 Neutrophils # (Manual) 0.2 0.2 Metamyelocytes 2 Differential Comment FINAL DIFF FINAL DIFF MANUAL MANUAL Platelet Estimate LOW LOW Platelet Morphology Comment NORMAL NORMAL Ovalocytes 1+ 1+ Acanthocytes OCC Sodium Level 134 139 Potassium Level 3.6 3.7 Chloride Level 96 103 Carbon Dioxide Level 29.7 26.6 Anion Gap 8 9 Blood Urea Nitrogen 28 24 Creatinine 1.08 0.93 Estimat Glomerular Filtration 72 86 Rate Random Glucose 128 97 Lactic Acid Level 1.9 Calcium Level 9.1 8.1 Total Bilirubin 1.3 Aspartate Amino Transf 14 (AST/SGOT) Alanine Aminotransferase 26 (ALT/SGPT) Alkaline Phosphatase 103 Total Protein 6.7 Albumin 3.0 Lipase 61 Urine Color YELLOW Urine Turbidity CLEAR Urine pH 5.5 Urine Specific [place] 1.026 Urine Protein 30 Urine Glucose (UA) NEG Urine Ketones NEG Urine Occult Blood TRACE Urine Nitrite NEG Urine Bilirubin NEG Urine Urobilinogen LESS THAN 2.0 Urine Leukocyte Esterase NEG Urine RBC 3 Urine WBC 8 Urine Squamous Epithelial <1 Cells Urine Transitional Epithelial <1 Cells Urine Bacteria RARE Urine Hyaline Casts 1 Urine Mucus FEW Microscopic Urinalysis Comment CULT NOT INDICATED Stool C. difficile Toxin (PCR) NEGATIVE Stl C. difficile Toxin PRESUMPTIVE Epiderm 027 NEGATIVE Eosinophils % 2 Tear Drop Cells 1+ Date/Time Procedure Status Source Growth 05/09/16 02:10 Received Stool Stool Pending 05/08/16 21:56 Aerobic Blood Culture Received Blood Peripheral Pending 05/08/16 21:56 Anaerobic Blood Culture Received Blood Peripheral Pending 05/08/16 21:50 Influenza Types A,B Antigen (NAYELI) - Final Complete Nasal Aspirate NEGATIVE FOR FLU A AND B ANTIGEN.... (Karma David) Result Diagram: 05/09/16 0500 05/09/16 0500 Imaging Last Impressions Chest X-Ray 05/08/166 Signed Impressions: Service Date/Time: Sunday, May 08, 2016 21:14 - CONCLUSION: No acute disease. Lance Short MD Abdomen/Pelvis CT 05/08/16 0000 Signed Impressions: Service Date/Time: Sunday, May 08, 2016 21:09 - CONCLUSION: 1. Minimal inflammation involving the ascending colon where there is a large diverticula likely diverticulitis. There is also slight wall thickening of the ascending colon. There 2. Punctate nonobstructing bilateral renal calculi measuring to 3 mm. 3. Right kidney slightly atrophic containing renal cysts. 4. Percutaneous gastrostomy tube. Lance Short MD (Karma David) Assessment and Plan Problem List: (1) Abdominal pain (2) Diverticulitis large intestine (3) Immunocompromised patient (4) Dehydration (5) Neutropenia (6) Dysphagia (7) Stomatitis (8) Head and neck cancer (9) Lymphadenopathy (10) PUD (peptic ulcer disease) (11) Thrombocytopenia Assessment and Plan Admit to Dr. Cisse 50-year-old male with recent diagnosis in February of head and neck cancer, was started on chemotherapy 1 week ago. He status post PEG tube placement for dysphagia. Presented to the emergency room with complaint of nausea vomiting diarrhea and abdominal pain. CT of the abdomen and pelvis was ordered, findings of inflammation involving ascending colon where there is a large diverticuli likely diverticulitis, there is also wall thickening of the ascending colon, punctate nonobstructive bilateral renal calculi measuring 2-3 mm, right kidney slightly atrophic containing cysts. -Continue with empiric antibiotics -Clear liquid diet -Continue with IV fluids -Replace electrolytes -Continue with analgesics when necessary -Consult GI for evaluation -Stool for C. difficile has been collected, was negative -Resume tube feedings History of head and neck cancer, currently undergoing chemotherapy, found neutropenic Neutropenic precautions Monitor CBC Oncology has been consulted -Magic mouthwash has been order Thrombocytopenia, recent chemotherapy -Monitor CBC -Monitor for bleeding Dysphagia, has PEG tube -Resume tube feedings -Clear liquid diet History of peptic ulcer disease Pepcid 20 mg IV twice a day SCDs for DVT prophylaxis, will avoid anticoagulation in the presence of thrombocytopenia Pepcid for GI prophylaxis Home medications reviewed, initiated as indicated Replace electrolytes as needed Plan of care has been discussed with the patient, attending and registered nurse. Further management of the patient will be dependent on the hospital course This patient was seen by myself and Dr. Cisse, this H&P is written on his behalf (Karma David) Assessment and Plan This is a 50-year-old male with a history of throat cancer for which he is on chemotherapy. He is status post PEG tube placement. He can only swallow liquids but not solids. He was seen and examined by the undersigned in room a 8 at the emergency department today. He is admitted with ascending colon diverticulitis. He was started on intravenous antibiotics. Gastroenterology consultation is requested. He was also started on intravenous fluids and analgesics. (Gui Cisse MD) Physician Certification 2 Midnight Certification Type: Admission for Inpatient Services Order for Inpatient Services The services are ordered in accordance with Medicare regulations or non- Medicare payer requirements, as applicable. In the case of services not specified as inpatient-only, they are appropriately provided as inpatient services in accordance with the 2-midnight benchmark. Estimated LOS (days): 2 2 days is the estimated time the patient will need to remain in the hospital, assuming treatment plan goals are met and no additional complications. 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
[2016-05-09] MEDS ORDERED: CIPROFLOXACIN 400 MG PREMIX 200 ML IV SCH (12:00)
[2016-05-09] MEDS: NYSTAT/DIPHENHY/LIDO MOUTHWASH (Adult) 120ML SWISH-SWAL SCH ×3 (14:16→22:18)
[2016-05-09] MEDS ORDERED: predniSONE 10 MG TAB PO SCH (21:00)
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
[2016-05-09] MEDS: NS IV SCH ×2 (22:18)
[2016-05-09] MEDS: IMIPENEM IV SCH ×2 (22:18)
[2016-05-09] MEDS: [UNRECOGNIZED DRUG - OTHER] IV SCH ×2 (22:18)
[2016-05-10] VITALS (7 sets, daily range): BP systolic 115–148; BP diastolic 76–86; PULSE 0–103; RESP 16; TEMP 97.1–100.2; O2SAT 96–99
[2016-05-10] MEDS: [UNRECOGNIZED DRUG - OTHER] IV SCH ×8 (03:49→20:52)
[2016-05-10] MEDS: NS IV SCH ×8 (03:49→20:52)
[2016-05-10] MEDS: IMIPENEM IV SCH ×8 (03:49→20:52)
[2016-05-10] MEDS: ACETAMINOPHEN/HYDROcodone 325 MG/5 MG TAB PO PRN ×4 (04:08→23:30)
[2016-05-10] MEDS: metroNIDAZOLE 500 MG INJ 100 ML IV SCH ×3 (05:59→20:54)
[2016-05-10 06:19] LABS: BICARBONATE 25.6 MEQ/L (21.0-32.0); POTASSIUM 3.2 MEQ/L (3.5-5.1)
[2016-05-10 06:34] LABS: HEMATOCRIT 35.7 % (39.0-51.0); MEAN CELL VOLUME 88.7 FL (80.0-100.0); MEAN CORPUSCULAR HEMOGLOBIN 30.9 PG (27.0-34.0); MEAN CORPUSCULAR HGB CONC 34.8 % (32.0-36.0); PLATELET COUNT 81 TH/MM3 (150-450); RED BLOOD COUNT 4.02 MIL/MM3 (4.50-5.90); RED CELL DISTRIBUTION WIDTH 12.7 % (11.6-17.2); WHITE BLOOD COUNT 2.1 TH/MM3 (4.0-11.0)
[2016-05-10 06:35] LABS: REVIEW FLAG FINAL
[2016-05-10] MEDS: NYSTAT/DIPHENHY/LIDO MOUTHWASH (Adult) 120ML SWISH-SWAL SCH ×4 (09:00→20:53)
[2016-05-10] MEDS: SODIUM CHLORIDE 0.9% FLUSH 5 ML FLUSH FLUSH SCH ×2 (09:38→20:52)
[2016-05-10] MEDS: SODIUM CHLOR 0.9% 1000 ML INJ 1,000 ML IV SCH ×3 (09:46→22:45)
--- NOTE | 2016-05-10 10:01 | PD.ONC.PN ---
Subjective Subjective Remarks Tmax 100.2 overnight. Mouth feels a little better. More movement of tongue. Still having pain in mouth. Objective Data Date Time Temp Pulse Resp B/P Pulse Ox O2 Delivery O2 Flow Rate FiO2 05/10/16 04:00 97.1 93 16 148/85 99 05/10/16 00:00 100.2 103 16 141/86 96 05/09/16 20:00 100.0 88 18 128/77 95 05/09/16 16:30 98.2 74 16 138/91 98 05/09/16 14:16 67 14 119/74 94 Room Air 05/10/16 05/10/16 05/10/16 07:00 15:00 23:00 Intake Total 1840 ml Balance 1840 ml Result Diagram: 05/10/16 0420 05/10/16 0420 Laboratory Results Laboratory Tests Test 05/10/16 04:20 White Blood Count 2.1 TH/MM3 Red Blood Count 4.02 MIL/MM3 Hemoglobin 12.4 GM/DL Hematocrit 35.7 % Mean Corpuscular Volume 88.7 FL Mean Corpuscular Hemoglobin 30.9 PG Mean Corpuscular Hemoglobin 34.8 % Concent Red Cell Distribution Width 12.7 % Platelet Count 81 TH/MM3 Mean Platelet Volume 8.7 FL Sodium Level 137 MEQ/L Potassium Level 3.2 MEQ/L Chloride Level 105 MEQ/L Carbon Dioxide Level 25.6 MEQ/L Anion Gap 6 MEQ/L Blood Urea Nitrogen 13 MG/DL Creatinine 0.83 MG/DL Estimat Glomerular Filtration 98 ML/MIN Rate Random Glucose 99 MG/DL Calcium Level 7.8 MG/DL Culture Results Microbiology Date/Time Procedure Status Source Growth 05/08/16 21:50 Influenza Types A,B Antigen (NAYELI) - Final Complete Nasal Aspirate NEGATIVE FOR FLU A AND B ANTIGEN.... 05/08/16 21:56 Aerobic Blood Culture - Preliminary Resulted Blood Peripheral NO GROWTH IN 1 DAY 05/08/16 21:56 Anaerobic Blood Culture - Preliminary Resulted Blood Peripheral NO GROWTH IN 1 DAY 05/08/16 21:56 Aerobic Blood Culture - Preliminary Resulted Blood Peripheral NO GROWTH IN 1 DAY 05/08/16 21:56 Anaerobic Blood Culture - Preliminary Resulted Blood Peripheral NO GROWTH IN 1 DAY 05/09/16 02:10 - Final Complete Stool Stool NO ENTERIC PATHOGENS DETECTED BY PCR... Administered Medications Medications (Trade) Dose Ordered Sig/Kimberly Route PRN Reason Start Time Stop Time Status Last Admin Dose Admin Sodium Chloride (NS 1000 ml Inj) 1,000 ml @ 100 mls/hr Q10H IV 05/08/16 22:51 05/10/16 09:46 IV Flush 2 ml 2 ml BID FLUSH 05/09/16 09:00 05/10/16 09:38 Metronidazole (Flagyl 500 Mg Inj) 100 ml @ 100 mls/hr Q8H IV 05/09/16 06:00 05/10/16 05:59 Famotidine (Pepcid Inj) 20 mg Q12H IV PUSH 05/08/16 23:00 05/09/16 23:19 Multi-Ingredient Mouthwash/Gargle (Magic Mouthwash Adult Liq) 10 ml QID SWISH-SWAL 05/09/16 13:00 05/09/16 22:18 Acetaminophen/ Hydrocodone Bitart 1 tab 1 tab Q4H PRN PO PAIN 1-10 05/09/16 11:30 05/10/16 04:08 Imipenem/ Cilastatin Sodium/ Sodium Chloride (Primaxin Inj/NS Inj) 100 ml @ 200 mls/hr Q6H IV 05/09/16 21:00 05/10/16 09:39 Objective Remarks GENERAL: Chronically ill appearing male, sitting up in bed in nad. SKIN: Warm and dry. HEAD: Normocephalic. EYES: No injection or drainage. MOUTH: + oral mucositis. + white exudate. NECK: Supple, trachea midline. CARDIOVASCULAR: Regular rate and rhythm RESPIRATORY: Breath sounds equal bilaterally. No accessory muscle use. GASTROINTESTINAL: Abdomen soft, non-tender, nondistended. EXTREMITIES: No cyanosis NEUROLOGICAL: awake and alert, normal speech. Assessment/Plan Assessment 50y/o male with locally advanced squamous cell carcinoma admitted with neutropenic fever, possible diverticulitis, + mucositis s/p chemo with 5-FU, cisplatin + Taxotere (neoadjuvant therapy) x 1 C on 04/30 CT ab/pelvis--> diverticulum right colon with adjacent inflammation. Plan 1. continue antibiotics (Primaxin + Flagyl) 2. continue supportive care with pain management, tube feeds--tolerating Jevity 1.5 3. monitor CBC 4. expect mucositis will recover with time. pain in mouth and abdomen are already improved today Attending Statement The exam, history, and the medical decision-making described in the above note were completed with the assistance of the mid-level provider. I reviewed and agree with the findings presented. I attest that I had a [id number] encounter with the patient on the same day, and personally performed and documented my assessment and findings in the medical record. He is better today and white cells recovering and the tenderness in the right lower quadrant is less. would continue same and anticipate he will be better in several days. Ana Mendez May 10, 2016 10:01 Raffaele Lindsay MD May 10, 2016 20:09
[2016-05-10] MEDS: FAMOTIDINE 20 MG/2 ML VIAL IV PUSH SCH ×2 (12:35→23:29)
[2016-05-11] VITALS (7 sets, daily range): BP systolic 111–132; BP diastolic 68–81; PULSE 60–73; RESP 16–18; TEMP 97.1–98.2; O2SAT 97–99
[2016-05-11] MEDS: NS IV SCH ×8 (03:22→22:15)
[2016-05-11] MEDS: IMIPENEM IV SCH ×8 (03:22→22:15)
[2016-05-11] MEDS: [UNRECOGNIZED DRUG - OTHER] IV SCH ×8 (03:22→22:15)
[2016-05-11] MEDS: ACETAMINOPHEN/HYDROcodone 325 MG/5 MG TAB PO PRN (03:23)
[2016-05-11] MEDS: metroNIDAZOLE 500 MG INJ 100 ML IV SCH ×3 (05:24→21:53)
[2016-05-11 06:31] LABS: AUTOMATED NEUTROPHIL # 1.8 TH/MM3 (1.8-7.7); BASOPHIL % 0.2 % (0.0-2.0); EOSINOPHIL # 0.1 TH/MM3 (0-0.4); EOSINOPHIL % 1.6 % (0.0-4.0); LYMPH % 16.5 % (9.0-44.0); LYMPHOCYTE # 0.5 TH/MM3 (1.0-4.8); MEAN CORPUSCULAR HEMOGLOBIN 31.1 PG (27.0-34.0); MEAN CORPUSCULAR HGB CONC 34.5 % (32.0-36.0); MONO % 23.2 % (0.0-8.0); NEUT % 58.5 % (16.0-70.0); PLATELET COUNT 90 TH/MM3 (150-450); RED BLOOD COUNT 3.77 MIL/MM3 (4.50-5.90); RED CELL DISTRIBUTION WIDTH 12.8 % (11.6-17.2); WHITE BLOOD COUNT 3.1 TH/MM3 (4.0-11.0)
[2016-05-11 06:39] LABS: HEMO FLAGS AUTO DIFF
--- NOTE | 2016-05-11 09:11 | PD.ONC.PN ---
Subjective Subjective Remarks Afebrile overnight. His mouth and his stomach feel a little better today, although he would like to increase the pain medication somewhat. He is tolerating tube feeds and having multiple BM. Objective Data Date Time Temp Pulse Resp B/P Pulse Ox O2 Delivery O2 Flow Rate FiO2 05/11/16 04:00 97.2 60 16 120/80 99 05/11/16 00:00 97.7 73 18 117/73 97 05/10/16 20:02 99 05/10/16 20:00 97.8 71 16 127/80 99 05/10/16 16:00 97.4 81 16 115/76 98 05/10/16 13:43 18 05/10/16 12:00 97.3 0 16 117/79 99 05/11/16 05/11/16 05/11/16 07:00 15:00 23:00 Intake Total 1805 ml Balance 1805 ml Result Diagram: 05/11/16 0530 05/10/16 0420 Laboratory Results Laboratory Tests Test 05/11/16 05:30 White Blood Count 3.1 TH/MM3 Red Blood Count 3.77 MIL/MM3 Hemoglobin 11.7 GM/DL Hematocrit 34.0 % Mean Corpuscular Volume 90.0 FL Mean Corpuscular Hemoglobin 31.1 PG Mean Corpuscular Hemoglobin 34.5 % Concent Red Cell Distribution Width 12.8 % Platelet Count 90 TH/MM3 Mean Platelet Volume 8.4 FL Neutrophils (%) (Auto) 58.5 % Lymphocytes (%) (Auto) 16.5 % Monocytes (%) (Auto) 23.2 % Eosinophils (%) (Auto) 1.6 % Basophils (%) (Auto) 0.2 % Neutrophils # (Auto) 1.8 TH/MM3 Lymphocytes # (Auto) 0.5 TH/MM3 Monocytes # (Auto) 0.7 TH/MM3 Eosinophils # (Auto) 0.1 TH/MM3 Basophils # (Auto) 0.0 TH/MM3 CBC Comment AUTO DIFF Culture Results Microbiology Date/Time Procedure Status Source Growth 05/08/16 21:50 Influenza Types A,B Antigen (NAYELI) - Final Complete Nasal Aspirate NEGATIVE FOR FLU A AND B ANTIGEN.... 05/08/16 21:56 Aerobic Blood Culture - Preliminary Resulted Blood Peripheral NO GROWTH IN 2 DAYS 05/08/16 21:56 Anaerobic Blood Culture - Preliminary Resulted Blood Peripheral NO GROWTH IN 2 DAYS 05/08/16 21:56 Aerobic Blood Culture - Preliminary Resulted Blood Peripheral NO GROWTH IN 2 DAYS 05/08/16 21:56 Anaerobic Blood Culture - Preliminary Resulted Blood Peripheral NO GROWTH IN 2 DAYS 05/09/16 02:10 - Final Complete Stool Stool NO ENTERIC PATHOGENS DETECTED BY PCR... Administered Medications Medications (Trade) Dose Ordered Sig/Kimberly Route PRN Reason Start Time Stop Time Status Last Admin Dose Admin Sodium Chloride (NS 1000 ml Inj) 1,000 ml @ 100 mls/hr Q10H IV 05/08/16 22:51 05/10/16 22:45 IV Flush 2 ml 2 ml BID FLUSH 05/09/16 09:00 05/10/16 09:38 Metronidazole (Flagyl 500 Mg Inj) 100 ml @ 100 mls/hr Q8H IV 05/09/16 06:00 05/11/16 05:24 Famotidine (Pepcid Inj) 20 mg Q12H IV PUSH 05/08/16 23:00 05/10/16 23:29 Multi-Ingredient Mouthwash/Gargle (Magic Mouthwash Adult Liq) 10 ml QID SWISH-SWAL 05/09/16 13:00 05/10/16 18:00 Acetaminophen/ Hydrocodone Bitart 1 tab 1 tab Q4H PRN PO PAIN 1-10 05/09/16 11:30 05/11/16 03:23 Imipenem/ Cilastatin Sodium/ Sodium Chloride (Primaxin Inj/NS Inj) 100 ml @ 200 mls/hr Q6H IV 05/09/16 21:00 05/11/16 03:22 Objective Remarks GENERAL: Middle aged male, lying in bed resting. SKIN: Warm and dry. HEAD: Normocephalic. EYES: No injection or drainage. MOUTH: + persistent mucositis. NECK: Supple, trachea midline. CARDIOVASCULAR: Regular rate and rhythm RESPIRATORY: Breath sounds equal bilaterally. No accessory muscle use. GASTROINTESTINAL: Abdomen soft, non-tender, nondistended. G-tube in place, receiving tube feeds EXTREMITIES: No cyanosis NEUROLOGICAL: awake and alert, normal speech. able to move extremities. Assessment/Plan Assessment 50y/o male with locally advanced squamous cell carcinoma admitted with neutropenic fever, possible diverticulitis, + mucositis s/p chemo with 5-FU, cisplatin + Taxotere (neoadjuvant therapy) x 1 C on 04/30 CT ab/pelvis--> diverticulum right colon with adjacent inflammation. Plan 1. increase [place] to 10/324 PO q 4 hours 2. continue abx 3. d/c neutropenic precautions when neutrophil count greater than 1K 4. continue tube feeds, IVF Attending Statement c/o pain and loose BM Neutropenia has resolved. D/C Neutropenic precautions. The exam, history, and the medical decision-making described in the above note were completed with the assistance of the mid-level provider. I reviewed and agree with the findings presented. I attest that I had a [id number] encounter with the patient on the same day, and personally performed and documented my assessment and findings in the medical record. Ana Mendez May 11, 2016 09:11 April Whyte MD May 11, 2016 19:34
[2016-05-11] MEDS: ACETAMINOPHEN/HYDROcodone 325 MG/10 MG TAB PO PRN ×4 (09:20→21:52)
[2016-05-11] MEDS: NYSTAT/DIPHENHY/LIDO MOUTHWASH (Adult) 120ML SWISH-SWAL SCH ×4 (09:21→21:00)
[2016-05-11] MEDS: SODIUM CHLORIDE 0.9% FLUSH 5 ML FLUSH FLUSH SCH ×2 (09:22→21:00)
[2016-05-11] MEDS: SODIUM CHLOR 0.9% 1000 ML INJ 1,000 ML IV SCH ×2 (10:51→21:52)
[2016-05-11] MEDS: FAMOTIDINE 20 MG/2 ML VIAL IV PUSH SCH ×2 (10:52→21:51)
[2016-05-11 11:20] LABS: BANDS 25 % (0-6); EOSINOPHILS 1 % (0-4); NEUTROPHIL # MANUAL DIFF 2.3 TH/MM3 (1.8-7.7); POLYS (SEG NEUTROPHILS) 50 % (16-70); WBC DIFF SAMPLE 100
[2016-05-11 11:21] LABS: BURR CELLS 2+ (NORMAL); OVALOCYTES 1+ (NORMAL); PLATELET ESTIMATE SMEAR LOW (NORMAL); PLATELET MORPHOLOGY NORMAL (NORMAL); SCAN/DIFF FINAL DIFF MANUAL; TOXIC GRANULATION 1+ (NORMAL)
--- NOTE | 2016-05-11 12:41 | HHI.PR ---
Subjective Interval History Please note, Progress note covering encounter for 10 May 2016 in paper chart, refer to paper chart for details Vitals/Results Intake & Output 05/10/16 05/10/16 05/11/16 15:00 23:00 07:00 Intake Total 600 ml 1805 ml Output Total 240 ml Balance 360 ml 1805 ml Intake Oral 600 ml 1680 ml Other 125 ml Output Urine Total 240 ml # Voids 4 # Bowel Movements 4 7 Vital Signs Vital Signs Date Time Temp Pulse Resp B/P Pulse Ox O2 Delivery O2 Flow Rate FiO2 05/11/16 08:00 97.5 70 16 132/81 98 05/11/16 04:00 97.2 60 16 120/80 99 05/11/16 00:00 97.7 73 18 117/73 97 05/10/16 20:02 99 05/10/16 20:00 97.8 71 16 127/80 99 05/10/16 16:00 97.4 81 16 115/76 98 05/10/16 13:43 18 CBC/BMP: 05/11/16 0530 05/10/16 0420 Lab Results Laboratory Tests Test 05/11/16 05:30 White Blood Count 3.1 TH/MM3 Red Blood Count 3.77 MIL/MM3 Hemoglobin 11.7 GM/DL Hematocrit 34.0 % Mean Corpuscular Volume 90.0 FL Mean Corpuscular Hemoglobin 31.1 PG Mean Corpuscular Hemoglobin 34.5 % Concent Red Cell Distribution Width 12.8 % Platelet Count 90 TH/MM3 Mean Platelet Volume 8.4 FL Neutrophils (%) (Auto) 58.5 % Lymphocytes (%) (Auto) 16.5 % Monocytes (%) (Auto) 23.2 % Eosinophils (%) (Auto) 1.6 % Basophils (%) (Auto) 0.2 % Neutrophils # (Auto) 1.8 TH/MM3 Lymphocytes # (Auto) 0.5 TH/MM3 Monocytes # (Auto) 0.7 TH/MM3 Eosinophils # (Auto) 0.1 TH/MM3 Basophils # (Auto) 0.0 TH/MM3 CBC Comment AUTO DIFF Differential Total Cells 100 Counted Neutrophils % (Manual) 50 % Band Neutrophils % 25 % Lymphocytes % 10 % Monocytes % 14 % Eosinophils % 1 % Neutrophils # (Manual) 2.3 TH/MM3 Differential Comment FINAL DIFF MANUAL Toxic Granulation 1+ Platelet Estimate LOW Platelet Morphology Comment NORMAL Ovalocytes 1+ [place] Cells 2+ Assessment/Plan Assessment/Plan Please note, Progress note covering encounter for 10 May 2016 in paper chart, refer to paper chart for details Gui Cisse MD May 11, 2016 12:41
--- NOTE | 2016-05-11 12:41 | HHI.PR ---
Subjective Interval History Alert, oriented, some abdominal pain but less severe Review of Systems Constitutional Constitutional Remarks General weakness, mild abdominal pain, no fever, 10 systems reviewed and otherwise negative Vitals/Results Intake & Output 05/10/16 05/10/16 05/11/16 15:00 23:00 07:00 Intake Total 600 ml 1805 ml Output Total 240 ml Balance 360 ml 1805 ml Intake Oral 600 ml 1680 ml Other 125 ml Output Urine Total 240 ml # Voids 4 # Bowel Movements 4 7 Vital Signs Vital Signs Date Time Temp Pulse Resp B/P Pulse Ox O2 Delivery O2 Flow Rate FiO2 05/11/16 08:00 97.5 70 16 132/81 98 05/11/16 04:00 97.2 60 16 120/80 99 05/11/16 00:00 97.7 73 18 117/73 97 05/10/16 20:02 99 05/10/16 20:00 97.8 71 16 127/80 99 05/10/16 16:00 97.4 81 16 115/76 98 05/10/16 13:43 18 CBC/BMP: 05/11/16 0530 05/10/16 0420 Lab Results Laboratory Tests Test 05/11/16 05:30 White Blood Count 3.1 TH/MM3 Red Blood Count 3.77 MIL/MM3 Hemoglobin 11.7 GM/DL Hematocrit 34.0 % Mean Corpuscular Volume 90.0 FL Mean Corpuscular Hemoglobin 31.1 PG Mean Corpuscular Hemoglobin 34.5 % Concent Red Cell Distribution Width 12.8 % Platelet Count 90 TH/MM3 Mean Platelet Volume 8.4 FL Neutrophils (%) (Auto) 58.5 % Lymphocytes (%) (Auto) 16.5 % Monocytes (%) (Auto) 23.2 % Eosinophils (%) (Auto) 1.6 % Basophils (%) (Auto) 0.2 % Neutrophils # (Auto) 1.8 TH/MM3 Lymphocytes # (Auto) 0.5 TH/MM3 Monocytes # (Auto) 0.7 TH/MM3 Eosinophils # (Auto) 0.1 TH/MM3 Basophils # (Auto) 0.0 TH/MM3 CBC Comment AUTO DIFF Differential Total Cells 100 Counted Neutrophils % (Manual) 50 % Band Neutrophils % 25 % Lymphocytes % 10 % Monocytes % 14 % Eosinophils % 1 % Neutrophils # (Manual) 2.3 TH/MM3 Differential Comment FINAL DIFF MANUAL Toxic Granulation 1+ Platelet Estimate LOW Platelet Morphology Comment NORMAL Ovalocytes 1+ [place] Cells 2+ Physical Exam General General Appearance: Well Developed, No Acute Distress, Comfortable Eyes Eye Exam: Pupils Reactive Ears & Nose Ears & Nose Exam: Auditory Canals Normal Throat Throat Exam: Oral Mucosa [place] & Moist Neck Neck Exam: Trachea Midline Pulmonary Resp Exam: Breath Sounds Equal, No Distress Cardiology CV Exam: Normal Sinus Rhythm Gastrointestinal/Abdomen GI Exam: Soft, Bowel Sounds Present GI Remarks Mild tenderness, PEG tube in place Musculoskeletal MS Exam: Normal Tone Extremeties Extremities Exam: No Edema Neurologic Neuro Exam: Awake, Oriented, Speech Clear, Moving All Extremities VTE Prophylaxis VTE Prophylaxis Meds: Heparin Assessment/Plan Assessment/Plan Assessment Acute diverticulitis Anemia Leukopenia, improving Thrombocytopenia Hypokalemia Throat cancer status post chemotherapy Management Continue antibiotics Flagyl Primaxin Pain control Replace potassium Follow white count Follow platelet count Oncology following Gui Cisse MD May 11, 2016 12:41
[2016-05-11] MEDS: POTASSIUM CHLORIDE 25 MEQ EFFERVESCENT TAB G-TUBE SCH (21:51)
[2016-05-12] MEDS: ACETAMINOPHEN/HYDROcodone 325 MG/10 MG TAB PO PRN ×4 (02:13→18:01)
[2016-05-12] MEDS: IMIPENEM IV SCH ×8 (04:19→23:19)
[2016-05-12] MEDS: NS IV SCH ×8 (04:19→23:19)
[2016-05-12] MEDS: [UNRECOGNIZED DRUG - OTHER] IV SCH ×8 (04:19→23:19)
[2016-05-12] MEDS: metroNIDAZOLE 500 MG INJ 100 ML IV SCH ×3 (05:59→21:34)
[2016-05-12] MEDS: SODIUM CHLOR 0.9% 1000 ML INJ 1,000 ML IV SCH (05:59)
[2016-05-12 08:00] VITALS: BP 143/87; PULSE 72; RESP 18; TEMP 97; O2SAT 99
[2016-05-12 08:14] LABS: AUTOMATED NEUTROPHIL # 1.8 TH/MM3 (1.8-7.7); BASOPHIL % 0.2 % (0.0-2.0); HEMATOCRIT 32.2 % (39.0-51.0); LYMPH % 15.9 % (9.0-44.0); LYMPHOCYTE # 0.5 TH/MM3 (1.0-4.8); MEAN CELL VOLUME 88.4 FL (80.0-100.0); MEAN CORPUSCULAR HEMOGLOBIN 30.2 PG (27.0-34.0); MEAN CORPUSCULAR HGB CONC 34.1 % (32.0-36.0); MONO % 23.7 % (0.0-8.0); NEUT % 59.2 % (16.0-70.0); PLATELET COUNT 122 TH/MM3 (150-450); RED BLOOD COUNT 3.64 MIL/MM3 (4.50-5.90); RED CELL DISTRIBUTION WIDTH 12.8 % (11.6-17.2)
[2016-05-12 08:43] LABS: BICARBONATE 28.5 MEQ/L (21.0-32.0); MAGNESIUM 1.9 MG/DL (1.5-2.5)
[2016-05-12 08:47] LABS: HEMO FLAGS AUTO DIFF
[2016-05-12 08:53] LABS: POTASSIUM 2.7 MEQ/L (3.5-5.1)
[2016-05-12] MEDS: SODIUM CHLORIDE 0.9% FLUSH 5 ML FLUSH FLUSH SCH ×2 (09:50→21:00)
[2016-05-12] MEDS: NYSTAT/DIPHENHY/LIDO MOUTHWASH (Adult) 120ML SWISH-SWAL SCH ×4 (09:50→21:34)
[2016-05-12] MEDS: FAMOTIDINE 20 MG/2 ML VIAL IV PUSH SCH ×2 (09:51→23:19)
[2016-05-12] MEDS: POTASSIUM CHLORIDE 25 MEQ EFFERVESCENT TAB G-TUBE SCH ×3 (09:51→23:26)
[2016-05-12 12:00] VITALS: BP 125/85; PULSE 72; RESP 18; TEMP 97.6; O2SAT 98
[2016-05-12 12:11] LABS: BANDS 16 % (0-6); NEUTROPHIL # MANUAL DIFF 2.6 TH/MM3 (1.8-7.7); PLATELET ESTIMATE SMEAR LOW (NORMAL); PLATELET MORPHOLOGY NORMAL (NORMAL); POLYS (SEG NEUTROPHILS) 71 % (16-70); SCAN/DIFF FINAL DIFF MANUAL; WBC DIFF SAMPLE 100
[2016-05-12 13:20] VITALS: O2SAT 99
[2016-05-12] MEDS: NS + KCL 40 MEQ INJ 1,000 ML IV SCH ×2 (13:38→23:28)
[2016-05-12 14:00] VITALS: BP 132/81; PULSE 73; RESP 18; TEMP 96; O2SAT 99
[2016-05-12] MEDS ORDERED: POTASSIUM PHOSPHATE INJ 30 MMOL in SODIUM CHLOR 0.9% 250 ML INJ 250 ML IV ONE (14:00)
[2016-05-12 17:55] VITALS: O2SAT 99
--- NOTE | 2016-05-12 18:21 | HHI.PR ---
Vitals/Results Intake & Output 05/11/16 05/11/16 05/12/16 15:00 23:00 07:00 Intake Total 480 ml Balance 480 ml Intake Oral 480 ml # Voids 2 1 2 # Bowel Movements 1 1 Vital Signs Vital Signs Date Time Temp Pulse Resp B/P Pulse Ox O2 Delivery O2 Flow Rate FiO2 05/12/16 17:55 99 21 05/12/16 13:20 99 21 05/11/16 20:00 97.1 64 17 114/68 99 CBC/BMP: 05/12/16 0430 05/12/16 0430 Lab Results Laboratory Tests Test 05/12/16 04:30 White Blood Count 3.0 TH/MM3 Red Blood Count 3.64 MIL/MM3 Hemoglobin 11.0 GM/DL Hematocrit 32.2 % Mean Corpuscular Volume 88.4 FL Mean Corpuscular Hemoglobin 30.2 PG Mean Corpuscular Hemoglobin 34.1 % Concent Red Cell Distribution Width 12.8 % Platelet Count 122 TH/MM3 Mean Platelet Volume 7.9 FL Neutrophils (%) (Auto) 59.2 % Lymphocytes (%) (Auto) 15.9 % Monocytes (%) (Auto) 23.7 % Eosinophils (%) (Auto) 1.0 % Basophils (%) (Auto) 0.2 % Neutrophils # (Auto) 1.8 TH/MM3 Lymphocytes # (Auto) 0.5 TH/MM3 Monocytes # (Auto) 0.7 TH/MM3 Eosinophils # (Auto) 0.0 TH/MM3 Basophils # (Auto) 0.0 TH/MM3 CBC Comment AUTO DIFF Differential Total Cells 100 Counted Neutrophils % (Manual) 71 % Band Neutrophils % 16 % Lymphocytes % 5 % Monocytes % 8 % Neutrophils # (Manual) 2.6 TH/MM3 Differential Comment FINAL DIFF MANUAL Platelet Estimate LOW Platelet Morphology Comment NORMAL Sodium Level 143 MEQ/L Potassium Level 2.7 MEQ/L Chloride Level 108 MEQ/L Carbon Dioxide Level 28.5 MEQ/L Anion Gap 7 MEQ/L Blood Urea Nitrogen 7 MG/DL Creatinine 0.49 MG/DL Estimat Glomerular Filtration 179 ML/MIN Rate Random Glucose 78 MG/DL Calcium Level 7.5 MG/DL Phosphorus Level 1.3 MG/DL Magnesium Level 1.9 MG/DL Physical Exam General General Appearance: Well Developed, No Acute Distress, Comfortable Eyes Eye Exam: Pupils Reactive Ears & Nose Ears & Nose Exam: Auditory Canals Normal Throat Throat Exam: Oral Mucosa [place] & Moist Neck Neck Exam: Trachea Midline Pulmonary Resp Exam: Breath Sounds Equal, No Distress, Rhonchi (clears with cough) Cardiology CV Exam: Normal Sinus Rhythm Gastrointestinal/Abdomen GI Exam: Soft, Bowel Sounds Present, Non-Distended GI Remarks PEG tube tolerates at 40 cc an hour Musculoskeletal MS Exam: Joints Intact, Normal Tone, Atrophy (mild) Extremeties Extremities Exam: No Edema Neurologic Neuro Exam: Awake, Oriented, Speech Clear, Moving All Extremities VTE Prophylaxis VTE Prophylaxis Meds: Heparin Assessment/Plan Assessment/Plan Assessment Acute diverticulitis Anemia Leukopenia, improving Thrombocytopenia Hypokalemia Throat cancer status post chemotherapy Hypokalemia severe Malnutrition, tube feed support Management Continue antibiotics Flagyl Primaxin Pain control Replace potassium, increased today Follow white count Follow platelet count Oncology following Will recheck K in the morning Tolerates 40 cc an hour of tube feed, 50 cc gives him abdominal pain. Supportive care Monitor his labs Discussed Condition with: Patient Discussed Condition Comment D/W Dr. Cisse. Patient seen on his behalf Irene Figueroa May 12, 2016 18:21
[2016-05-12 20:00] VITALS: BP 124/85; PULSE 79; RESP 18; TEMP 98.5; O2SAT 98
[2016-05-13] VITALS: BP 130/84; PULSE 84; RESP 17; TEMP 99.6; O2SAT 97
[2016-05-13] MEDS: NS IV SCH ×6 (03:23→15:00)
[2016-05-13] MEDS: [UNRECOGNIZED DRUG - OTHER] IV SCH ×6 (03:23→15:00)
[2016-05-13] MEDS: IMIPENEM IV SCH ×6 (03:23→15:00)
[2016-05-13 04:00] VITALS: BP 136/88; PULSE 84; RESP 18; TEMP 99.6; O2SAT 97
[2016-05-13] MEDS: metroNIDAZOLE 500 MG INJ 100 ML IV SCH ×2 (05:31→14:00)
[2016-05-13] MEDS: POTASSIUM CHLORIDE 25 MEQ EFFERVESCENT TAB G-TUBE SCH ×3 (05:31→17:26)
[2016-05-13 06:05] LABS: AUTOMATED NEUTROPHIL # 2.5 TH/MM3 (1.8-7.7); BASOPHIL % 0.3 % (0.0-2.0); EOSINOPHIL % 0.5 % (0.0-4.0); HEMATOCRIT 34.2 % (39.0-51.0); HEMO FLAGS DIFF FINAL; LYMPH % 14.9 % (9.0-44.0); LYMPHOCYTE # 0.6 TH/MM3 (1.0-4.8); MEAN CELL VOLUME 88.2 FL (80.0-100.0); MEAN CORPUSCULAR HEMOGLOBIN 30.5 PG (27.0-34.0); MEAN CORPUSCULAR HGB CONC 34.6 % (32.0-36.0); MONO % 15.2 % (0.0-8.0); NEUT % 69.1 % (16.0-70.0); PLATELET COUNT 153 TH/MM3 (150-450); RED BLOOD COUNT 3.87 MIL/MM3 (4.50-5.90); WHITE BLOOD COUNT 3.7 TH/MM3 (4.0-11.0)
[2016-05-13 06:32] LABS: BICARBONATE 27.8 MEQ/L (21.0-32.0); POTASSIUM 3.5 MEQ/L (3.5-5.1)
[2016-05-13 08:00] VITALS: BP 129/87; PULSE 76; RESP 16; TEMP 96.5; O2SAT 98
--- NOTE | 2016-05-13 10:53 | HHI.PR ---
Subjective Interval History Patient mouth is feeling better Has more in good energy No nausea and vomiting No abdominal pain Tolerating feeds at 40 cc an hour No diarrhea No chest pain or shortness of breath Review of system for 12 point system otherwise unremarkable Vitals/Results Intake & Output 05/12/16 05/12/16 05/13/16 15:00 23:00 07:00 Intake Total 480 ml 240 ml 820 ml Balance 480 ml 240 ml 820 ml Intake Oral 480 ml 240 ml 60 ml Tube Feeding 520 ml Other 240 ml # Voids 3 2 3 # Bowel Movements 1 2 Vital Signs Vital Signs Date Time Temp Pulse Resp B/P Pulse Ox O2 Delivery O2 Flow Rate FiO2 05/13/16 08:00 96.5 76 16 129/87 98 05/13/16 04:00 99.6 84 18 136/88 97 05/13/16 00:00 99.6 84 17 130/84 97 05/12/16 20:00 98.5 79 18 124/85 98 05/12/16 19:01 18 05/12/16 17:55 99 21 05/12/16 14:00 96.0 73 18 132/81 99 05/12/16 13:20 99 21 05/12/16 12:00 97.6 72 18 125/85 98 CBC/BMP: 05/13/16 0545 05/13/16 0545 Lab Results Laboratory Tests Test 05/12/16 05/13/16 18:30 05:45 Potassium Level 3.3 MEQ/L 3.5 MEQ/L White Blood Count 3.7 TH/MM3 Red Blood Count 3.87 MIL/MM3 Hemoglobin 11.8 GM/DL Hematocrit 34.2 % Mean Corpuscular Volume 88.2 FL Mean Corpuscular Hemoglobin 30.5 PG Mean Corpuscular Hemoglobin 34.6 % Concent Red Cell Distribution Width 13.0 % Platelet Count 153 TH/MM3 Mean Platelet Volume 7.2 FL Neutrophils (%) (Auto) 69.1 % Lymphocytes (%) (Auto) 14.9 % Monocytes (%) (Auto) 15.2 % Eosinophils (%) (Auto) 0.5 % Basophils (%) (Auto) 0.3 % Neutrophils # (Auto) 2.5 TH/MM3 Lymphocytes # (Auto) 0.6 TH/MM3 Monocytes # (Auto) 0.6 TH/MM3 Eosinophils # (Auto) 0.0 TH/MM3 Basophils # (Auto) 0.0 TH/MM3 CBC Comment DIFF FINAL Differential Comment Sodium Level 145 MEQ/L Chloride Level 111 MEQ/L Carbon Dioxide Level 27.8 MEQ/L Anion Gap 6 MEQ/L Blood Urea Nitrogen 7 MG/DL Creatinine 0.58 MG/DL Estimat Glomerular Filtration 148 ML/MIN Rate Random Glucose 111 MG/DL Calcium Level 8.0 MG/DL Physical Exam General General Appearance: Well Developed, No Acute Distress, Comfortable Eyes Eye Exam: Pupils Reactive Ears & Nose Ears & Nose Exam: Auditory Canals Normal Throat Throat Exam: Oral Mucosa [place] & Moist Neck Neck Exam: Trachea Midline Pulmonary Resp Exam: Clear Bilaterally, Breath Sounds Equal, No Distress Cardiology CV Exam: Regular, Normal Sinus Rhythm Gastrointestinal/Abdomen GI Exam: Soft, Non-Tender, Bowel Sounds Present, Non-Distended GI Remarks With PEG tube site Musculoskeletal MS Exam: Joints Intact, Normal Tone, Atrophy (mild) Extremeties Extremities Exam: No Edema Neurologic Neuro Exam: Awake, Oriented, Speech Clear, Moving All Extremities VTE Prophylaxis VTE Prophylaxis Meds: Heparin Assessment/Plan Assessment/Plan Assessment Acute diverticulitis Anemia Leukopenia, improving Thrombocytopenia Hypokalemia Throat cancer status post chemotherapy Hypokalemia severe Malnutrition, tube feed support Management On antibiotics Flagyl Primaxin Pain control Replace potassium, better today Better white count Within normal limits platelet count Oncology following. Discussed with Francie Tellez likely discharge this afternoon Labs and radiological data reviewed Medications reviewed Previous notes reviewed Discussed with RN Discussed with patient in detail Snata Doe MD May 13, 2016 10:53
[2016-05-13] MEDS ORDERED: METR-1 PO (10:57)
[2016-05-13] MEDS ORDERED: MAGICADU2 SWISH-SWAL (10:57)
[2016-05-13] MEDS ORDERED: HYDR-3583 PO (10:57)
--- NOTE | 2016-05-13 11:02 | HHI.DS ---
Discharge Summary Admission Date May 08, 2016 at 22:53 Admitting Diagnosis diverticulitis, leukopenia, immunocompromised, sepsis (1) Abdominal pain Diagnosis: Principal (2) Diverticulitis large intestine Diagnosis: Principal (3) Immunocompromised patient Diagnosis: Principal (4) Dehydration Diagnosis: Principal (5) Neutropenia Diagnosis: Principal (6) Dysphagia Diagnosis: Principal (7) Stomatitis Diagnosis: Principal (8) Head and neck cancer Diagnosis: Principal (9) Lymphadenopathy Diagnosis: Principal (10) PUD (peptic ulcer disease) Diagnosis: Principal (11) Thrombocytopenia Diagnosis: Principal Brief History This is a 50-year-old male with recent diagnoses of head and neck cancer, HPV positive, recently started on chemotherapy approximately a week ago. Oncologist is Dr. Lindsay. Patient is also due to have radiation. Patient had progressive dysphagia, had a PEG tube placed. According to patient, he had his first chemotherapy a week ago. He presented to the emergency room with history of 2-3 days of nausea, vomiting, diarrhea, with left lower quadrant abdominal pain. Indicates abdominal pain is crampy, diarrhea is watery brown. There is no blood. No hematemesis. No fever, no chills. No prior history of C. difficile, no sick contacts, no recent travel. He had been prescribed Cipro by his oncologist. He has not been taking very much orally, he has a G-tube. Usually he takes approximately 2-3 cans of Jevity a day. In the emergency room , patient was evaluated and laboratory workup was completed. Patient laboratory workup was significant for leukopenia, WBC 0.8, platelet count of 97. Hemoglobin 15.4, hematocrit 45.3. He was noted dehydrated, B1 28, creatinine 1.08. Stools for C. difficile were negative. Chest x-ray did not show any acute findings. Abdomen and pelvis CT done, showing diverticulitis. Patient was admitted put on IV antibiotic appropriately. Patient was seen and followed by oncologist. Patient followed to have a neutropenia. Patient was kept on IV hydration for his dehydration urine for his stomatitis and mucositis patient was on appropriate medication. Now improving and not better. Patient is tolerating tube feeding. His WBC count is better now. His hemoglobin is stable. He is no longer diarrhea. No more nausea vomiting. As patient is overall a stable and his diverticulitis is better not to discharge him home to be followed by his primary care DrMary and oncology as outpatient. Patient has appointment with oncologist every seventh CBC/BMP: 05/13/16 0545 05/13/16 0545 Significant Findings Laboratory Tests Test 05/11/16 05/12/16 05/12/16 05/13/16 05:30 04:30 18:30 05:45 White Blood Count 3.1 TH/MM3 3.0 TH/MM3 3.7 TH/MM3 (4.0-11.0) (4.0-11.0) (4.0-11.0) Red Blood Count 3.77 MIL/MM3 3.64 MIL/MM3 3.87 MIL/MM3 (4.50-5.90) (4.50-5.90) (4.50-5.90) Hemoglobin 11.7 GM/DL 11.0 GM/DL 11.8 GM/DL (13.0-17.0) (13.0-17.0) (13.0-17.0) Hematocrit 34.0 % 32.2 % 34.2 % (39.0-51.0) (39.0-51.0) (39.0-51.0) Platelet Count 90 TH/MM3 122 TH/MM3 (150-450) (150-450) Monocytes (%) (Auto) 23.2 % 23.7 % 15.2 % (0.0-8.0) (0.0-8.0) (0.0-8.0) Lymphocytes # (Auto) 0.5 TH/MM3 0.5 TH/MM3 0.6 TH/MM3 (1.0-4.8) (1.0-4.8) (1.0-4.8) Band Neutrophils % 25 % (0-6) 16 % (0-6) Monocytes % 14 % (0-8) Toxic Granulation 1+ (NORMAL) Platelet Estimate LOW (NORMAL) LOW (NORMAL) Ovalocytes 1+ (NORMAL) Troy Cells 2+ (NORMAL) Neutrophils % (Manual) 71 % (16-70) Lymphocytes % 5 % (9-44) Potassium Level 2.7 MEQ/L 3.3 MEQ/L (3.5-5.1) (3.5-5.1) Chloride Level 108 MEQ/L 111 MEQ/L (98-107) (98-107) Creatinine 0.49 MG/DL 0.58 MG/DL (0.60-1.30) (0.60-1.30) Calcium Level 7.5 MG/DL 8.0 MG/DL (8.5-10.1) (8.5-10.1) Phosphorus Level 1.3 MG/DL (2.5-4.9) Random Glucose 111 MG/DL (74-106) Pt Condition on Discharge: Stable Discharge Instructions DIET: Follow Instructions for: As Tolerated, No Restrictions Speech Therapy-Diet Recommends: Soft Activities you can perform: Weight Bearing as Devon Follow up Referrals: Oncology - Next Day PCP Follow-up - 1 Week New Medications: Metronidazole (Flagyl) 500 Mg Tab 500 MG PO TID Infection #15 Ref 0 TAB Hydrocodone-Acetaminophen (Hydrocodone-Acetaminophen) 10-325 mg Tab 1 TAB PO Q4H PRN pain1-10 #30 TAB Zcqmyzoz-Wsohyscticxhmdc-Kwannuwry Liq (Magic Mouthwash Adult Liq) 120 Ml Susp 10 ML SWISH-SWAL QID mucositis #180 ML Continued Medications: Hydrocodone-Acetaminophen (Lortab) 5-325 Mg Tab 1 TAB PO Q4H PRN PAIN #12 TAB Prednisone (Prednisone) 10 Mg Tab 10 MG PO BID Ref 0 TAB Discontinued Medications: Ciprofloxacin (Cipro) 500 Mg Tab 500 MG PO BID Infection #20 TAB Santa Doe MD May 13, 2016 11:02
[2016-05-13] MEDS: FAMOTIDINE 20 MG/2 ML VIAL IV PUSH SCH (11:42)
[2016-05-13] MEDS: NYSTAT/DIPHENHY/LIDO MOUTHWASH (Adult) 120ML SWISH-SWAL SCH ×3 (11:43→17:27)
[2016-05-13] MEDS: ACETAMINOPHEN/HYDROcodone 325 MG/10 MG TAB PO PRN (11:43)
[2016-05-13] MEDS: SODIUM CHLORIDE 0.9% FLUSH 5 ML FLUSH FLUSH SCH (11:44)
[2016-05-13 12:00] VITALS: BP 125/85; PULSE 83; RESP 16; TEMP 97.8; O2SAT 98
--- NOTE | 2016-05-13 13:13 | PD.ONC.PN ---
Subjective Subjective Remarks Afebrile overnight. patient resting comfortably without complaint. Mouth is improving. Objective Data Date Time Temp Pulse Resp B/P Pulse Ox O2 Delivery O2 Flow Rate FiO2 05/13/16 12:00 97.8 83 16 125/85 98 05/13/16 08:00 96.5 76 16 129/87 98 05/13/16 04:00 99.6 84 18 136/88 97 05/13/16 00:00 99.6 84 17 130/84 97 05/12/16 20:00 98.5 79 18 124/85 98 05/12/16 19:01 18 05/12/16 17:55 99 21 05/12/16 14:00 96.0 73 18 132/81 99 05/12/16 13:20 99 21 Result Diagram: 05/13/16 0545 05/13/16 0545 Laboratory Results Laboratory Tests Test 05/12/16 05/13/16 18:30 05:45 Potassium Level 3.3 MEQ/L 3.5 MEQ/L White Blood Count 3.7 TH/MM3 Red Blood Count 3.87 MIL/MM3 Hemoglobin 11.8 GM/DL Hematocrit 34.2 % Mean Corpuscular Volume 88.2 FL Mean Corpuscular Hemoglobin 30.5 PG Mean Corpuscular Hemoglobin 34.6 % Concent Red Cell Distribution Width 13.0 % Platelet Count 153 TH/MM3 Mean Platelet Volume 7.2 FL Neutrophils (%) (Auto) 69.1 % Lymphocytes (%) (Auto) 14.9 % Monocytes (%) (Auto) 15.2 % Eosinophils (%) (Auto) 0.5 % Basophils (%) (Auto) 0.3 % Neutrophils # (Auto) 2.5 TH/MM3 Lymphocytes # (Auto) 0.6 TH/MM3 Monocytes # (Auto) 0.6 TH/MM3 Eosinophils # (Auto) 0.0 TH/MM3 Basophils # (Auto) 0.0 TH/MM3 CBC Comment DIFF FINAL Differential Comment Sodium Level 145 MEQ/L Chloride Level 111 MEQ/L Carbon Dioxide Level 27.8 MEQ/L Anion Gap 6 MEQ/L Blood Urea Nitrogen 7 MG/DL Creatinine 0.58 MG/DL Estimat Glomerular Filtration 148 ML/MIN Rate Random Glucose 111 MG/DL Calcium Level 8.0 MG/DL Administered Medications Medications (Trade) Dose Ordered Sig/Kimberly Route PRN Reason Start Time Stop Time Status Last Admin Dose Admin IV Flush (NS Flush) 2 ml UNSCH PRN FLUSH FLUSH AFTER USING IV ACCESS 05/08/16 23:00 05/11/16 09:22 IV Flush 2 ml 2 ml BID FLUSH 05/09/16 09:00 05/13/16 11:44 Metronidazole (Flagyl 500 Mg Inj) 100 ml @ 100 mls/hr Q8H IV 05/09/16 06:00 05/13/16 05:31 Famotidine (Pepcid Inj) 20 mg Q12H IV PUSH 05/08/16 23:00 05/13/16 11:42 Multi-Ingredient Mouthwash/Gargle 10 ml 10 ml QID SWISH-SWAL 05/09/16 13:00 05/13/16 11:43 Imipenem/ Cilastatin Sodium/ Sodium Chloride (Primaxin Inj/NS Inj) 100 ml @ 200 mls/hr Q6H IV 05/09/16 21:00 05/13/16 11:43 Acetaminophen/ Hydrocodone Bitart 1 tab 1 tab Q4H PRN PO pain1-10 05/11/16 10:00 05/13/16 11:43 Potassium Chloride/Sodium Chloride (NS + KCl 40 Meq Inj) 1,000 ml @ 100 mls/hr Q10H IV 05/12/16 14:00 05/12/16 23:28 Potassium Bicarb/ Potassium Chloride (K-Lyte Cl Eff) 50 meq Q6HR G-TUBE 05/12/16 18:00 05/13/16 05:31 Objective Remarks GENERAL: Middle aged male, sitting up in bed in [facility]. SKIN: Warm and dry. HEAD: Normocephalic. EYES: No injection or drainage. MOUTH: improving mucositis. NECK: Supple, trachea midline. CARDIOVASCULAR: Regular rate and rhythm RESPIRATORY: Breath sounds equal bilaterally. No accessory muscle use. GASTROINTESTINAL: Abdomen soft, non-tender, nondistended. G-tube in place, receiving tube feeds EXTREMITIES: No cyanosis NEUROLOGICAL: AO x3 normal speech. moving all extremities. 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 mucositis improving. Counts recovered. s/p chemo with 5-FU, cisplatin + Taxotere (neoadjuvant therapy) x 1 C on 04/30 CT ab/pelvis--> diverticulum right colon with adjacent inflammation. Plan 1. patient feeling much better he is clear for discharge 2. follow up with Dr. Lindsay tomorrow as scheduled Ana Mendez May 13, 2016 13:13
[2016-05-13] MEDS: NS + KCL 40 MEQ INJ 1,000 ML IV SCH (15:38)
== END 2016-05-13 18:10 | disposition home or self-care (01) | DRG 392 ==
LOC: NEPB 20:49 → NEDA 22:53 → NEDH 05-09 05:24 → HOCB 05-09 16:29
PROVIDERS: ADMIT Specialist; ATTEND Specialist
DX: K57.32 Diverticulitis of large intestine without perforation or abscess without bleeding (principal); D89.9 Disorder involving the immune mechanism, unspecified; C79.89 Secondary malignant neoplasm of other specified sites; D69.6 Thrombocytopenia, unspecified; E46 Unspecified protein-calorie malnutrition; D70.9 Neutropenia, unspecified; E83.39 Other disorders of phosphorus metabolism; C01 Malignant neoplasm of base of tongue; E86.0 Dehydration; Z93.1 Gastrostomy status; F17.210 Nicotine dependence, cigarettes, uncomplicated; R50.81 Fever presenting with conditions classified elsewhere; Z87.11 Personal history of peptic ulcer disease; K12.30 Oral mucositis (ulcerative), unspecified; D64.9 Anemia, unspecified; E87.6 Hypokalemia; K12.1 Other forms of stomatitis; R13.10 Dysphagia, unspecified; N20.0 Calculus of kidney; N28.1 Cyst of kidney, acquired; Z96.641 Presence of right artificial hip joint; R59.1 Generalized enlarged lymph nodes
CPT/HCPCS: 71010; 74176; 80048; 80053; 81001; 83605; 83690; 83735; 84100; 84132; 85007; 85025; 85027; 87040; 87493; 87506; 87804; 96361; 96374; 96375; J0743; J0744; J1644; J2270; J2405; J3480; J7030; J7050

== ENCOUNTER 2016-06-04 03:58 | Inpatient (IN) | payer MEDICAID ==
[2016-06-04] VITALS (8 sets, daily range): BP systolic 109–130; BP diastolic 65–86; PULSE 82–108; RESP 16–20; TEMP 97.4–99.7; O2SAT 97–98
[~2016-06-04] VITALS: Ht 175.3 cm; Wt 69.9 kg
[~2016-06-04 03:58] MED LIST changes: -CIPR-9 PO; +HYDR-3583 PO; +MAGICADU2 SWISH-SWAL; +METR-1 PO
[2016-06-04] MEDS ORDERED: metroNIDAZOLE 500 MG INJ 100 ML IV STA (04:12)
[2016-06-04] MEDS ORDERED: VANCOMYCIN INJ 1,000 MG in SODIUM CHLOR 0.9% 250 ML INJ 250 ML IV STA (04:12)
[2016-06-04] MEDS ORDERED: AZTREONAM INJ 2,000 MG in SODIUM CHLORIDE 0.9% INJ 100 ML IV STA (04:12)
[2016-06-04] MEDS ORDERED: ONDANSETRON HCL 4 MG/2 ML VIAL IV ONE (04:15)
[2016-06-04] MEDS ORDERED: SODIUM CHLOR 0.9% 1000 ML INJ 1,000 ML IV ONE (04:15)
--- NOTE | 2016-06-04 04:16 | PD ---
HPI Chief Complaint: GI Complaint Time Seen by Provider: 04:10 Travel History International Travel<30 days: No Contact w/Intl Traveler<30days: No Traveled to known affect area: No History of Present Illness HPI The patient is a 50 year old male who presents to the [facility] [address] emergency department with a history of on Friday morning awakening with generalized fatigue, nausea, increased postnasal drip, cough, and diarrhea. The patient reports that he's had nausea and vomiting 2. He reports that he has had diarrhea 2 times. The patient reports that the stool is loose and brown in color. 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 He is currently on chemotherapy and completed a course of chemotherapy this past Friday. His oncologist is Dr. Lindsay. The patient has a feeding tube in place. He reports that he had been taking food by mouth, however when he began to be nauseated yesterday he resumed tube feeds. The patient was brought in by ambulance services and was given one injection of Zofran IM, 4 mg. The patient reports having continued nausea. The patient reports that he's had a fever with a MAXIMUM TEMPERATURE of 100.3. The patient reports that other family members have been sick recently with a flulike illness. He reports having generalized abdominal discomfort associated with nausea. The patient denies any new neck pain, chest pain, shortness of breath, urinary symptoms, or neurologic symptoms. [facility] Past Medical History Narrative Medical The patient's past medical history is significant for a locally advanced women' s cell carcinoma the base of the tongue currently on chemotherapy, history of duodenal ulcer disease. Cancer: Yes (THROAT AND NECK) Cardiovascular Problems: No Chemotherapy: Yes (CURRENT) Diminished Hearing: No Endocrine: No Gastrointestinal Disorders: Yes (OCCASIONAL ABD PAINS - ULCER IN LARGE INTESTINE) Genitourinary: No Immune Disorder: No Musculoskeletal: No Neurologic: No Psychiatric: No Reproductive: No Respiratory: No Immunizations Current: Yes Ulcer: Yes Influenza Vaccination: No Past Surgical History Narrative Surgical The patient's past surgical history is significant for placement of a gastrostomy tube, history of Feahbn-i-Tavs placement, history of needle biopsy of a right cervical node that was positive for squamous cell carcinoma, tonsillectomy, left corneal laceration repair, tib-fib fracture repair, right hand repair. AICD: No Eye Surgery: Yes (CORNEAL LAC REPAIR) Joint Replacement: No Pacemaker: No Tonsillectomy: Yes Other Surgery: Yes (PORT AND G TUBE) Social History Alcohol Use: No Tobacco Use: No Substance Use: No Allergies-Medications (Allergen,Severity, Reaction): Coded Allergies: Codeine (Verified Allergy, Intermediate, Hives, 06/04/16) Keflex (Unverified Allergy, Unknown, Hives, 06/04/16) Penicillin (Verified Allergy, Unknown, Hives, 06/04/16) *MDRO Multi-Drug Resistant Organism (Unverified Adverse Reaction, Unknown , MRSA, 06/04/16) MRSA (foot wound) - 10/2014, 03/17/16 Reported Meds & Prescriptions Reported Meds & Active Scripts Active Magic Mouthwash Adult Liq (Multi-Ingredient Mouthwash/Gargle) 120 Ml Susp 10 Ml SWISH-SWAL QID Lortab (Hydrocodone-Acetaminophen) 5-325 Mg Tab 1 Tab PO Q4H PRN Review of Systems Except as stated in HPI: all other systems reviewed are Neg General / Constitutional: Positive: Fever Eyes: No: Visual changes HENT: Positive: Congestion, Other (postnasal drip), No: Headaches Cardiovascular: No: Chest Pain or Discomfort Respiratory: Positive: Cough, No: Shortness of Breath Gastrointestinal: Positive: Nausea, Vomiting, Diarrhea, Abdominal Pain, Changes in Bowel Habits, No: Indigestion Genitourinary: No: Dysuria Musculoskeletal: No: Pain Skin: No Rash Neurologic: No: Weakness, Focal Abnormalities, Change in Mentation, Slurred Speech, Sensory Disturbance Psychiatric: No: Depression Endocrine: No: Polydipsia Hematologic/Lymphatic: No: Easy Bruising Physical Exam Narrative General: The patient is a well-developed, thin appearing male in no acute distress. Head and Neck exam: Head is normocephalic atraumatic. Eyes: EOMI, pupils are equal round and reactive to light. Nose: Midline septum with pink mucous membranes Mouth: Dentition unremarkable. Moist mucus membranes. The patient is noted to have a white thick patchy covering over his tongue. Posterior oropharynx is not erythematous. No tonsillar hypertrophy. Uvula midline. Airway patent. Neck: No palpable lymphadenopathy. No nuchal rigidity. No thyromegaly. Cardiovascular: Sinus tachycardia in the low 100 without murmurs, gallops, or rubs. No pulse deficit to the extremities and simultaneous auscultation and palpation of his radial artery. Lungs: Clear to auscultation bilaterally. No wheezes, rhonchi, or rales. Abdomen: Soft, without tenderness to palpation in all 4 quadrants of the abdomen. No guarding, rebound, or rigidity. Normal bowel sounds are audible. The patient has a feeding tube in place in the left upper quadrant of the abdomen that appears to be in good repair without any signs of infection or irritation. Extremities: No clubbing, cyanosis, or edema. 2+ pulses in all 4 extremities. No calf tenderness on palpation. Back: No costovertebral angle tenderness to palpation. Neurologic Exam: Grossly nonfocal. Skin Exam: No rash noted. Intact skin that is warm and dry. Data Data Last Documented VS Vital Signs Date Time Temp Pulse Resp B/P Pulse Ox O2 Delivery O2 Flow Rate FiO2 06/04/16 04:26 16 98 Room Air 06/04/16 04:02 98.0 108 130/86 Orders Electrocardiogram (06/04/16 04:10) Complete Blood Count With Diff (06/04/16 04:10) Comprehensive Metabolic Panel (06/04/16 04:10) Creatine Kinase (Cpk) (06/04/16 04:10) Ckmb (Isoenzyme) Profile (06/04/16 04:10) Troponin I (06/04/16 04:10) B-Type Natriuretic Peptide (06/04/16 04:10) Prothrombin Time / Inr (Pt) (06/04/16 04:10) Act Partial Throm Time (Ptt) (06/04/16 04:10) Blood Culture (06/04/16 04:10) Lipase (06/04/16 04:10) Urinalysis - C+S If Indicated (06/04/16 04:10) Magnesium (Mg) (06/04/16 04:10) Influenzae A/B Antigen (06/04/16 04:10) Chest, Single Ap (06/04/16 04:10) Iv Access Insert/Monitor (06/04/16 04:10) Ecg Monitoring (06/04/16 04:10) Oximetry (06/04/16 04:10) Lactic Acid Sepsis Protocol (06/04/16 04:10) Ondansetron Inj (Zofran Inj) (06/04/16 04:15) Sodium Chlor 0.9% 1000 Ml Inj (Ns 1000 M (06/04/16 04:15) Vancomycin Inj (Vancomycin Inj) (06/04/16 04:12) Aztreonam Inj (Azactam Inj) (06/04/16 04:12) Metronidazole 500 Mg Inj (Flagyl 500 Mg (06/04/16 04:12) Admit Order (Ed Use Only) (06/04/16 06:07) Labs Laboratory Tests Test 06/04/16 04:20 White Blood Count 1.6 TH/MM3 Red Blood Count 4.50 MIL/MM3 Hemoglobin 13.7 GM/DL Hematocrit 39.9 % Mean Corpuscular Volume 88.7 FL Mean Corpuscular Hemoglobin 30.5 PG Mean Corpuscular Hemoglobin 34.3 % Concent Red Cell Distribution Width 14.7 % Platelet Count 189 TH/MM3 Mean Platelet Volume 8.2 FL Neutrophils (%) (Auto) 35.3 % Lymphocytes (%) (Auto) 47.9 % Monocytes (%) (Auto) 16.0 % Eosinophils (%) (Auto) 0.3 % Basophils (%) (Auto) 0.5 % Neutrophils # (Auto) 0.6 TH/MM3 Lymphocytes # (Auto) 0.8 TH/MM3 Monocytes # (Auto) 0.3 TH/MM3 Eosinophils # (Auto) 0.0 TH/MM3 Basophils # (Auto) 0.0 TH/MM3 CBC Comment AUTO DIFF Differential Total Cells 100 Counted Neutrophils % (Manual) 13 % Band Neutrophils % 21 % Lymphocytes % 48 % Monocytes % 8 % Eosinophils % 1 % Neutrophils # (Manual) 0.7 TH/MM3 Metamyelocytes 9 % Differential Comment FINAL DIFF MANUAL Platelet Estimate NORMAL Platelet Morphology Comment NORMAL Red Cell Morphology Comment NORMAL Prothrombin Time 12.2 SEC Prothromb Time International 1.1 RATIO Ratio Activated Partial 24.6 SEC Thromboplast Time Sodium Level 133 MEQ/L Potassium Level 4.0 MEQ/L Chloride Level 96 MEQ/L Carbon Dioxide Level 26.8 MEQ/L Anion Gap 10 MEQ/L Blood Urea Nitrogen 15 MG/DL Creatinine 1.28 MG/DL Estimat Glomerular Filtration 59 ML/MIN Rate Random Glucose 111 MG/DL Lactic Acid Level 1.8 mmol/L Calcium Level 9.4 MG/DL Magnesium Level 1.6 MG/DL Total Bilirubin 1.2 MG/DL Aspartate Amino Transf 17 U/L (AST/SGOT) Alanine Aminotransferase 31 U/L (ALT/SGPT) Alkaline Phosphatase 141 U/L Total Creatine Kinase 29 U/L Troponin I LESS THAN 0.02 NG/ML B-Type Natriuretic Peptide 4 PG/ML Total Protein 7.9 GM/DL Albumin 3.5 GM/DL Lipase 132 U/L MDM Medical Decision Making Medical Screen Exam Complete: Yes Emergency Medical Condition: Yes Medical Record Reviewed: Yes Interpretation(s) Last Impressions Chest X-Ray 06/04/16409 Signed Impressions: Service Date/Time: Saturday, June 04, 2016 04:22 - CONCLUSION: 1. No acute disease. Right Fazlzr-z-Qoci tip in superior vena cava. Fernando Jaime MD Differential Diagnosis Influenza, versus pneumonia, versus urinary tract infection, versus sepsis of undetermined origin, versus gastroenteritis, versus colitis Narrative Course During the course of the patients emergency department visit, the patients history, examination, and differential diagnosis were reviewed with the patient. The patient had IV access obtained and blood work sent for analysis. The patient was placed on a director of cardiac cath lab with oximetry and blood pressure monitoring. An EKG was done on arrival. The patient's EKG shows a sinus tachycardia with a heart rate of 113, left atrial enlargement, nonspecific ST-T wave abnormalities, no acute ST segment elevation is noted. The patient was provided normal saline 1 L IV fluid bolus, Zofran 4 mg IV, Azactam 2 g IV, metronidazole 500 mg IV, vancomycin 1 g IV. The patients laboratory studies were reviewed and remarkable for a white count of 1.6, hemoglobin 13.7, platelets 189 with neutrophils 13, bands 21, lymphocytes 48, neutrophil number is 0.7. CMP is remarkable for sodium of 133, chloride 96, glucose 111, total bilirubin 1.2, lactic acid 1.8, alkaline phosphatase 141, CPK 29, troponin I less than 0.02, BNP is 4, lipase 132, PT PTT are unremarkable. Radiology studies were reviewed and remarkable for a chest x-ray that shows no acute cardiopulmonary disease. Right Isqfcu-i-Upfe in place. The patients results were discussed with the patient, including the plan of care. I explained that further testing and/ or monitoring is indicated based on the patients history, examination, and/ or laboratory findings. Therefore, I recommended admission for additional evaluation. The patient expressed understanding and was agreeable with this plan. The patient was admitted to the hospital in guarded condition and sent to a bed under the care of the [facility]. Sepsis Criteria SIRS Criteria (2 or more): Heart rate over 90, WBC > 16099, < 4000 or > 10% bands Criteria Outcome: Meets SIRS criteria Physician Communication Physician Communication The patient's case was discussed with Casey Andres who did agree to admit the patient to the [facility]. Diagnosis Primary Impression: Febrile illness Additional Impression: Nausea, vomiting, and diarrhea Admitting Information Admitting Physician Requests: Admit Rani Javed MD Jun 04, 2016 04:16
--- NOTE | 2016-06-04 04:28 | RADRPT ---
EXAM DATE/TIME: 06/04/2016 04:22 [place] COMPARISON: CHEST SINGLE AP, May 08, 2016, 21:14. INDICATIONS : Shortness of breath. MEDICAL HISTORY : None. SURGICAL HISTORY : None. ENCOUNTER: Initial ACUITY: 1 day PAIN SCORE: 0/10 LOCATION: Bilateral chest FINDINGS: A single view of the chest demonstrates the lungs to be symmetrically aerated without evidence of mas s, infiltrate or effusion. The cardiomediastinal contours are unremarkable. Osseous structures are intact. CONCLUSION: 1. No acute disease. Right Gnaqzt-l-Qgcr tip in superior vena cava. Fernando Jaime MD on June 04, 2016 at 4:26 Board Certified Radiologist. This report was verified electronically.
[2016-06-04 04:41] LABS: AUTOMATED NEUTROPHIL # 0.6 TH/MM3 (1.8-7.7); BASOPHIL % 0.5 % (0.0-2.0); EOSINOPHIL % 0.3 % (0.0-4.0); HEMATOCRIT 39.9 % (39.0-51.0); LYMPH % 47.9 % (9.0-44.0); LYMPHOCYTE # 0.8 TH/MM3 (1.0-4.8); MEAN CELL VOLUME 88.7 FL (80.0-100.0); MEAN CORPUSCULAR HEMOGLOBIN 30.5 PG (27.0-34.0); MEAN CORPUSCULAR HGB CONC 34.3 % (32.0-36.0); NEUT % 35.3 % (16.0-70.0); PLATELET COUNT 189 TH/MM3 (150-450); RED CELL DISTRIBUTION WIDTH 14.7 % (11.6-17.2); WHITE BLOOD COUNT 1.6 TH/MM3 (4.0-11.0)
[2016-06-04 04:45] LABS: HEMO FLAGS AUTO DIFF
[2016-06-04 04:52] LABS: APTT (PATIENT) 24.6 SEC (24.3-30.1); INTERNATIONAL NORMALIZED RATIO 1.1 RATIO; PROTHROMBIN TIME - PATIENT 12.2 SEC (9.8-11.6)
[2016-06-04 05:01] LABS: ANION GAP 10 MEQ/L (5-15); AST (GOT) 17 U/L (15-37); BICARBONATE 26.8 MEQ/L (21.0-32.0); BLOOD UREA NITROGEN 15 MG/DL (7-18); CHLORIDE 96 MEQ/L (98-107); GLOMERULAR FILTRATION RATE 59 ML/MIN (>89); MAGNESIUM 1.6 MG/DL (1.5-2.5); SODIUM (NA) 133 MEQ/L (136-145)
[2016-06-04 05:07] LABS: ALKALINE PHOSPHATASE 141 U/L (45-117); ALT (GPT) 31 U/L (12-78); TOTAL BILIRUBIN ADULT 1.2 MG/DL (0.2-1.0)
[2016-06-04 05:10] LABS: CREATINE KINASE 29 U/L (39-308)
[2016-06-04 05:28] LABS: BANDS 21 % (0-6); EOSINOPHILS 1 % (0-4); METAMYELOCYTES 9 % (0-1); NEUTROPHIL # MANUAL DIFF 0.7 TH/MM3 (1.8-7.7); POLYS (SEG NEUTROPHILS) 13 % (16-70); WBC DIFF SAMPLE 100
[2016-06-04 05:30] LABS: PLATELET ESTIMATE SMEAR NORMAL (NORMAL); PLATELET MORPHOLOGY NORMAL (NORMAL); SCAN/DIFF FINAL DIFF MANUAL
[2016-06-04] MEDS ORDERED: SODIUM CHLOR 0.9% 1000 ML INJ 1,000 ML IV SCH ×2 (07:06→09:45)
[2016-06-04] MEDS ORDERED: SODIUM CHLORIDE 0.9% FLUSH 5 ML FLUSH FLUSH PRN (07:15)
[2016-06-04] MEDS ORDERED: ACETAMINOPHEN 325 MG TAB PO PRN (07:15)
[2016-06-04] MEDS ORDERED: NALOXONE HCL 0.4 MG/ML AMP IV PRN (07:15)
[2016-06-04] MEDS ORDERED: Vancomycin Consult Pharmacy 1 EA OTHER SCH (07:15)
[2016-06-04] MEDS: HEPARIN SODIUM - SQ 10,000 UNITS/ML VIAL SQ SCH ×2 (08:54→20:25)
[2016-06-04] MEDS: SODIUM CHLORIDE 0.9% FLUSH 5 ML FLUSH FLUSH SCH ×2 (09:00→20:29)
[2016-06-04] MEDS: ONDANSETRON HCL 4 MG/2 ML VIAL IVP PRN (09:22)
[2016-06-04] MEDS ORDERED: oxyCODONE/ACETAMINOPHEN 5 MG/325 MG TAB PO PRN (10:00)
--- NOTE | 2016-06-04 10:56 | MH ---
cc: ADELIA AVILA DATE OF ADMISSION: 06/04/2016 DATE OF 1965 CHIEF COMPLAINT Nausea, fatigue, cough, diarrhea. 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 The patient is currently receiving chemotherapy under the direction of his oncologist, Dr. Lindsay. The patient received his last chemotherapy Friday before admission. On Friday before admission, he received an injection per his course of treatment with cancer. After this injection, he started feeling increased symptoms of generalized fatigue, cough, some postnasal drip, diarrhea, nausea and vomiting. The patient denies any chest pain. Denies any shortness of breath. He states that some of his family members have had a stomach flu in the house and he was very nervous about possibly catching the flu-like illness. The patient is wearing a mask for his protection. He denies any problems with voiding. He is positive for some diarrhea, some chest soreness and abdominal soreness probably secondary to cough. The patient does have a feeding tube in place. He is alert, oriented, a good historian but obviously is very debilitated from his ADLs. The patient has complained of some low grade fever over the past two days and then PAST MEDICAL HISTORY Includes: 1. Throat cancer, currently on chemotherapy. 2. Ulcer disease, large intestine. 3. Aniat of the tongue. 4. Foot wound PAST SURGICAL HISTORY 1. Corneal laceration 2. Tonsillectomy 3. MediPort and G-tube ALLERGIES CODEINE, KEFLEX, PENICILLIN, MDRO (MULTI-DRUG RESISTANT ORGANISMS), MRSA WITH A FOOT WOUND. MEDICATIONS 1. Lortab 2. Magic mouth wash 3. The patient's chemotherapy. SOCIAL HISTORY He is , currently lives with his and two daughters. He denies any alcohol, tobacco or illicit drug use. REVIEW OF SYSTEMS A 12-point review was done, positives do include the symptoms mentioned in the HPI which are cough, debility, generalized fatigue, nausea, post nasal drip, diarrhea, vomiting, low grade fever before admission. All other systems are negative or unremarkable. PHYSICAL EXAM VITAL SIGNS: Temperature 98 on admission, currently 99.7, pulse 93, respirations 16, blood pressure 124/84 and 111/75. O2 sat 98 on room air. HEENT: Atraumatic, normocephalic. Positive for a white patchy whitish-yellow patchy budding appearance on his tongue. No erythema. Airway is patent. Eyes, KAMALJIT at 3 mm bilateral. No scleral icterus. Mucous membranes are slightly dry. Neck is supple. Mild moist nasal mucous membranes. CARDIOVASCULAR: Regular rate and rhythm. No murmurs, rubs or gallops appreciated. No pedal edema. Pulses are intact. LUNGS: Lungs are essentially clear anteriorly and posteriorly. No wheezes, rales or rhonchi. He is eupneic at rest. ABDOMEN: Flat, soft, mild tenderness noted with special attention to the lateral aspects left and right. The patient's feeding tube is in the left upper quadrant without erythema or edema. 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 No edema. No calf tenderness. NEUROLOGIC: He is alert, oriented, a good historian. PSYCHIATRIC: Appropriate mood and affect. SKIN: Slightly pale but warm and dry. DIAGNOSTIC DATA WBC count 1.6, RBC 4.5, hemoglobin 13.7, hematocrit 39.9, platelet count 189, lymphocyte auto 47.9, monocyte 16, neutrophils 13 percent, and band neutrophils are 21, lymphocytes 48, normal platelet morphology, PT/INR 1.1. Chemistry sodium 133, potassium 4, chloride 96, carbon dioxide 26.8, amnion gap 10, BUN 15, creatinine 1.28, GFR of 59, random glucose 111, lactic acid 1.8 bilirubin 1.2, alkaline phosphatase 141, creatinine kinase 29, troponin less than 0.02. BMP is 4, total protein 7.9, albumin 3.5, lipase 132. IMAGING STUDIES Chest x-ray, no acute disease. MediPort in the superior vena cava. ASSESSMENT AND PLAN 1. Febrile illness with nausea, vomiting and diarrhea. 2. Leukopenia 3. Hyponatremia mild 4. Squamous cell cancer base of the tongue, rule out flu, lactic acid sepsis possible. Our plan is to: 1. Admit inpatient from the noted comorbidities which include his cancer and chemotherapy with multi-system symptoms. 2. The patient will probably require a greater than two midnight stay. The patient needs gentle hydration with IV fluids and broad-spectrum antibiotics. 3. Pain management 4. Vital signs q4 and p.r.n. as warranted. 5. We will monitor his labs. 6. Monitor his vital signs which will include any fever, tachycardia or bradycardia, respiratory status and symptoms and blood pressure. We will consult oncology, Dr. Lindsay, for his expert opinion. The patient will need Niaspan swish and swallow for his possible Anita or fungal infection of the tongue. These symptoms are probably secondary to his Chemotherapy. Oxygen at two liters p.r.n. DVT prophylaxis with heparin. 7. The patient received Vancomycin, Zofran, IV fluids and Aztreonam and Metronidazole in the emergency room. We will stabilize the patient, treat his symptoms. monitor his labs. Currently to my knowledge, the patient is full code, full aggressive care and we will follow. Dictated KAUSHIK Brooks MD TAY Ocasio/FAUSTINO /9:54 AM /11:35 AM
[2016-06-04] MEDS: metroNIDAZOLE 500 MG INJ 100 ML IV SCH ×2 (13:28→20:29)
[2016-06-04] MEDS: NYSTATIN SUSP 500,000 U/5 ML CUP SWISH-SWAL SCH ×3 (13:29→20:29)
[2016-06-04] MEDS ORDERED: METOCLOPRAMIDE HCL 10 MG/2 ML VIAL IV PUSH ONE (14:00)
[2016-06-04] MEDS: MORPHINE SULFATE 4 MG/ML INJ IV PUSH PRN ×3 (14:14→20:19)
[2016-06-04] MEDS: DEXT 5%-NACL 0.9% 1000 ML INJ 1,000 ML IV SCH (14:14)
[2016-06-04] MEDS: AZTREONAM INJ 1,000 MG in SODIUM CHLORIDE 0.9% INJ 100 ML IV SCH ×2 (14:15→23:00)
[2016-06-04] MEDS: VANCOMYCIN INJ 1,250 MG in SODIUM CHLOR 0.9% 250 ML INJ 250 ML IV SCH (17:07)
[2016-06-05] VITALS (8 sets, daily range): BP systolic 87–116; BP diastolic 65–73; PULSE 66–77; RESP 16–18; TEMP 95.5–98.6; O2SAT 97–100
[2016-06-05] MEDS: metroNIDAZOLE 500 MG INJ 100 ML IV SCH ×3 (04:57→22:04)
[2016-06-05] MEDS: AZTREONAM INJ 1,000 MG in SODIUM CHLORIDE 0.9% INJ 100 ML IV SCH ×3 (06:17→23:34)
[2016-06-05] MEDS: VANCOMYCIN INJ 1,250 MG in SODIUM CHLOR 0.9% 250 ML INJ 250 ML IV SCH ×2 (07:06→19:48)
[2016-06-05 07:56] LABS: MEAN CELL VOLUME 89.8 FL (80.0-100.0); MEAN CORPUSCULAR HEMOGLOBIN 30.5 PG (27.0-34.0); PLATELET COUNT 145 TH/MM3 (150-450); RED BLOOD COUNT 3.24 MIL/MM3 (4.50-5.90); RED CELL DISTRIBUTION WIDTH 15.1 % (11.6-17.2)
[2016-06-05 07:58] LABS: HEMO FLAGS AUTO DIFF
[2016-06-05 08:29] LABS: ALKALINE PHOSPHATASE 82 U/L (45-117); ALT (GPT) 29 U/L (12-78); ANION GAP 10 MEQ/L (5-15); AST (GOT) 17 U/L (15-37); BICARBONATE 23.2 MEQ/L (21.0-32.0); BLOOD UREA NITROGEN 13 MG/DL (7-18); CHLORIDE 106 MEQ/L (98-107); GLOMERULAR FILTRATION RATE 100 ML/MIN (>89); POTASSIUM 3.5 MEQ/L (3.5-5.1); SODIUM (NA) 139 MEQ/L (136-145); TOTAL BILIRUBIN ADULT 0.6 MG/DL (0.2-1.0)
[2016-06-05 08:39] LABS: BANDS 43 % (0-6); DOHLE BODIES PRESENT (NONE SEEN); METAMYELOCYTES 5 % (0-1); NEUTROPHIL # MANUAL DIFF 1.6 TH/MM3 (1.8-7.7); POLYS (SEG NEUTROPHILS) 4 % (16-70); WBC DIFF SAMPLE 100
[2016-06-05 08:40] LABS: OVALOCYTES 1+ (NORMAL); PLATELET ESTIMATE SMEAR LOW (NORMAL); PLATELET MORPHOLOGY NORMAL (NORMAL); SCAN/DIFF FINAL DIFF MANUAL; TOXIC VACUOLATION PRESENT (NONE SEEN)
[2016-06-05] MEDS: DEXT 5%-NACL 0.9% 1000 ML INJ 1,000 ML IV SCH ×2 (09:49)
[2016-06-05] MEDS: SODIUM CHLORIDE 0.9% FLUSH 5 ML FLUSH FLUSH SCH ×2 (09:50→21:00)
[2016-06-05] MEDS: NYSTATIN SUSP 500,000 U/5 ML CUP SWISH-SWAL SCH ×4 (09:50→22:05)
[2016-06-05] MEDS: HEPARIN SODIUM - SQ 10,000 UNITS/ML VIAL SQ SCH ×2 (09:51→22:05)
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
--- NOTE | 2016-06-05 11:44 | EKG ---
Date Performed: 06/04/2016 Time Performed: 04:07:06 PTAGE: 50 years EKG: SINUS TACHYCARDIA POSSIBLE LEFT ATRIAL ENLARGEMENT NONSPECIFIC ST & T-WAVE ABNORMALITY ABNO RMAL RHYTHM ECG PREVIOUS TRACING : 02/17/2015 22.24 DOCTOR: Salvador Fisher Interpretating Date/Time 06/05/2016 11:43:26
[2016-06-05] MEDS ORDERED: POTASSIUM CHLORIDE 25 MEQ EFFERVESCENT TAB PO ONE (13:45)
--- NOTE | 2016-06-05 13:45 | HHI.PR ---
Subjective Remarks The patient was saying that he was feeling better. He still had diarrhea. He said he sometimes gets this diarrhea with the chemotherapy. He has been tolerating a diet. He says his cancer has been responding well to treatment. Discussed with nursing. Objective Vitals Vital Signs Date Time Temp Pulse Resp B/P Pulse Ox O2 Delivery O2 Flow Rate FiO2 06/05/16 11:45 95.9 77 16 116/73 100 06/05/16 09:47 97 21 06/05/16 08:00 95.5 67 16 87/65 99 06/05/16 04:00 97.2 66 18 97/65 99 06/05/16 00:00 98.6 75 18 101/69 99 06/04/16 20:00 98.8 85 17 124/76 98 06/04/16 16:00 98.7 86 20 113/65 97 I/O 06/04/16 06/04/16 06/04/16 06/05/16 06/05/16 06/05/16 07:00 15:00 23:00 07:00 15:00 23:00 Intake Total 0 ml 950 ml 725 ml 960 ml Balance 0 ml 950 ml 725 ml 960 ml Intake Oral 0 ml 960 ml IV Total 950 ml 725 ml # Voids 2 Result Diagram: 06/05/16 0643 06/05/16 0643 Imaging Last Impressions Chest X-Ray 06/04/16 0410 Signed Impressions: Service Date/Time: Saturday, June 04, 2016 04:22 - CONCLUSION: 1. No acute disease. Right Uobipj-e-Duth tip in superior vena cava. Fernando Jaime MD Objective Remarks GENERAL: Resting comfortably in bed. SKIN: Warm and dry. HEAD: Atraumatic. Normocephalic. EYES: Pupils equal and round. No scleral icterus. No injection or drainage. ENT: No nasal bleeding or discharge. Mucous membranes pink and moist. NECK: Trachea midline. No JVD. Fullness upon palpation appreciated. CARDIOVASCULAR: Regular rate and rhythm. No murmur. RESPIRATORY: No accessory muscle use. Clear to auscultation. Breath sounds equal bilaterally. GASTROINTESTINAL: Abdomen soft, non-tender, nondistended. Hepatic and splenic margins not palpable. MUSCULOSKELETAL: Extremities without clubbing, cyanosis, or edema. No obvious deformities. NEUROLOGICAL: Awake and alert. No obvious cranial nerve deficits. Motor grossly within normal limits. Five out of 5 muscle strength in the arms and legs. Normal speech. PSYCHIATRIC: Appropriate mood and affect; insight and judgment normal. Medications and IVs Current Medications Medications (Trade) Dose Ordered Sig/Kimberly Route Start Time Stop Time Status Last Admin (NS Flush) 2 ml UNSCH PRN FLUSH 06/04/16 07:15 (NS Flush) 2 ml BID FLUSH 06/04/16 09:00 06/04/16 20:29 (Tylenol) 650 mg Q4H PRN PO 06/04/16 07:15 06/04/16 09:22 (Zofran Inj) 4 mg Q6H PRN IVP 06/04/16 07:15 06/04/16 09:22 (Heparin Inj) 5,000 units Q12H SQ 06/04/16 08:00 06/05/16 09:51 Naloxone HCl 0.4 mg 0.4 mg UNSCH PRN IV 06/04/16 07:15 Metronidazole 100 ml @ 100 mls/hr Q8H IV 06/04/16 13:00 06/05/16 14:08 Pharmacy Profile Note 0 ml @ 0 mls/hr UNSCH OTHER 06/04/16 07:15 Aztreonam 1000 mg/ Sodium Chloride 100 ml @ 200 mls/hr Q8H IV 06/04/16 14:00 06/05/16 06:17 (Vancomycin Inj/ NS 250 ml Inj) 262.5 ml @ 250 mls/hr Q12H IV 06/04/16 18:00 06/05/16 07:06 Miscellaneous Information SPECIFIC LAB TO BE DRAWN:VANCOMY... ONCE ONCE XX 06/06/16 05:45 06/06/16 05:46 (Mycostatin Liq) 5 ml QID SWISH-SWAL 06/04/16 13:00 06/05/16 14:14 Morphine Sulfate 2 mg 2 mg Q3H PRN IV PUSH 06/04/16 14:00 06/05/16 14:09 (D5W-NS 1000 ml Inj) 1,000 ml @ 100 mls/hr Q10H IV 06/04/16 14:00 06/05/16 09:49 A/P Assessment and Plan Neutropenia with febrile illness Symptoms include nausea, vomiting and diarrhea. The pt has a history of squamous cell cancer at the base of the tongue. Oncology consult appreciated. - continue IVFs and antibiotics. - follow culture data. - continue Niaspan swish and swallow for his possible fungal infection of the tongue. Hypotension Blood pressure has been fluctuating. - Continue fluids and encourage by mouth intake. Thrush Noted on examination. - Continue nystatin. PPx: Heparin. Discharge Planning Anticipate discharge home in the morning if blood cultures remain negative and patient continues to feel well. Ruben Lowe DO Jun 05, 2016 13:45
[2016-06-05] MEDS: MORPHINE SULFATE 4 MG/ML INJ IV PUSH PRN ×3 (14:09→23:35)
[2016-06-05] MEDS: ONDANSETRON HCL 4 MG/2 ML VIAL IVP PRN ×2 (16:39→22:10)
[2016-06-06] VITALS: BP 100/60; PULSE 66; RESP 17; TEMP 96.5; O2SAT 98
[2016-06-06 04:00] VITALS: BP 91/56; PULSE 52; RESP 17; TEMP 97.8; O2SAT 98
[2016-06-06] MEDS: metroNIDAZOLE 500 MG INJ 100 ML IV SCH (04:51)
[2016-06-06] MEDS ORDERED: PHARMACY ORDERED LAB XX ONE (05:45)
[2016-06-06] MEDS: MORPHINE SULFATE 4 MG/ML INJ IV PUSH PRN (05:55)
[2016-06-06] MEDS: AZTREONAM INJ 1,000 MG in SODIUM CHLORIDE 0.9% INJ 100 ML IV SCH (05:56)
[2016-06-06] MEDS: ONDANSETRON HCL 4 MG/2 ML VIAL IVP PRN (06:01)
[2016-06-06] MEDS: VANCOMYCIN INJ 1,250 MG in SODIUM CHLOR 0.9% 250 ML INJ 250 ML IV SCH (07:26)
[2016-06-06 07:47] LABS: BASOPHIL % 0.5 % (0.0-2.0); EOSINOPHIL % 0.2 % (0.0-4.0); HEMATOCRIT 28.4 % (39.0-51.0); LYMPH % 16.4 % (9.0-44.0); LYMPHOCYTE # 1.3 TH/MM3 (1.0-4.8); MEAN CELL VOLUME 90.3 FL (80.0-100.0); MEAN CORPUSCULAR HEMOGLOBIN 30.7 PG (27.0-34.0); NEUT % 63.9 % (16.0-70.0); PLATELET COUNT 150 TH/MM3 (150-450); RED BLOOD COUNT 3.14 MIL/MM3 (4.50-5.90); RED CELL DISTRIBUTION WIDTH 15.3 % (11.6-17.2); WHITE BLOOD COUNT 7.8 TH/MM3 (4.0-11.0)
[2016-06-06 07:53] LABS: HEMO FLAGS AUTO DIFF
[2016-06-06 08:00] VITALS: BP 94/62; PULSE 70; RESP 16; TEMP 96.8; O2SAT 98
[2016-06-06 09:23] VITALS: O2SAT 97
--- NOTE | 2016-06-06 09:31 | HHI.DCPOC ---
Discharge Care Plan Diagnosis: (1) Nausea, vomiting, and diarrhea (2) Febrile illness (3) Head and neck cancer Goals to Promote Your Health * To prevent worsening of your condition and complications * To maintain your health at the optimal level Directions to Meet Your Goals Take your medications as prescribed Follow your dietary instruction Follow activity as directed Keep your appointments as scheduled Take your immunizations and boosters as scheduled If your symptoms worsen call your PCP, if no PCP go to Urgent Care Center or Emergency Room Smoking is Dangerous to Your Health. Avoid second hand smoke Call the 24-hour hour crisis hotline for domestic abuse at Ruben Lowe DO Jun 06, 2016 09:31
--- NOTE | 2016-06-06 09:32 | HHI.DS ---
Discharge Summary Admission Date Jun 04, 2016 at 06:09 Discharge Date: Jun 06, 2016 Admitting Diagnosis Febrile illness, Leukopenia, on chemotherapy (1) Nausea, vomiting, and diarrhea ICD Code: R11.2 (2) Head and neck cancer ICD Code: C76.0 (3) Febrile illness ICD Code: R50.9 Diagnosis: Principal Procedures None. 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 The patient is currently receiving chemotherapy under the direction of his oncologist, Dr. Lindsay. The patient received his last chemotherapy Friday before admission. On Friday before admission, he received an injection per his course of treatment with cancer. After this injection, he started feeling increased symptoms of generalized fatigue, cough, some postnasal drip, diarrhea, nausea and vomiting. The patient denies any chest pain. Denies any shortness of breath. He states that some of his family members have had a stomach flu in the house and he was very nervous about possibly catching the flu-like illness. The patient is wearing a mask for his protection. He denies any problems with voiding. He is positive for some diarrhea, some chest soreness and abdominal soreness probably secondary to cough. The patient does have a feeding tube in place. He is alert, oriented, a good historian but obviously is very debilitated from his ADLs. The patient has complained of some low grade fever over the past two days CBC/BMP: 06/06/16 0547 06/05/16 0643 Significant Findings Laboratory Tests Test 06/04/16 06/05/16 06/06/16 04:20 06:43 05:47 White Blood Count 1.6 TH/MM3 3.0 TH/MM3 (4.0-11.0) (4.0-11.0) Lymphocytes (%) (Auto) 47.9 % (9.0-44.0) Monocytes (%) (Auto) 16.0 % 19.0 % (0.0-8.0) (0.0-8.0) Neutrophils # (Auto) 0.6 TH/MM3 (1.8-7.7) Lymphocytes # (Auto) 0.8 TH/MM3 (1.0-4.8) Neutrophils % (Manual) 13 % (16-70) 4 % (16-70) Band Neutrophils % 21 % (0-6) 43 % (0-6) Lymphocytes % 48 % (9-44) Neutrophils # (Manual) 0.7 TH/MM3 1.6 TH/MM3 (1.8-7.7) (1.8-7.7) Metamyelocytes 9 % (0-1) 5 % (0-1) Prothrombin Time 12.2 SEC (9.8-11.6) Sodium Level 133 MEQ/L (136-145) Chloride Level 96 MEQ/L (98-107) Estimat Glomerular Filtration 59 ML/MIN (>89) Rate Random Glucose 111 MG/DL (74-106) Total Bilirubin 1.2 MG/DL (0.2-1.0) Alkaline Phosphatase 141 U/L (45-117) Total Creatine Kinase 29 U/L (39-308) Troponin I LESS THAN 0.02 NG/ML (0.02-0.05) Red Blood Count 3.24 MIL/MM3 3.14 MIL/MM3 (4.50-5.90) (4.50-5.90) Hemoglobin 9.9 GM/DL 9.6 GM/DL (13.0-17.0) (13.0-17.0) Hematocrit 29.0 % 28.4 % (39.0-51.0) (39.0-51.0) Platelet Count 145 TH/MM3 (150-450) Monocytes % 20 % (0-8) Toxic Vacuolation PRESENT (NONE SEEN) Dohle Bodies PRESENT (NONE SEEN) Platelet Estimate LOW (NORMAL) Ovalocytes 1+ (NORMAL) Calcium Level 8.4 MG/DL (8.5-10.1) Total Protein 5.4 GM/DL (6.4-8.2) Albumin 2.4 GM/DL (3.4-5.0) Monocytes # (Auto) 1.5 TH/MM3 (0-0.9) Vancomycin Level Trough 15.9 MCG/ML (5.0-10.0) Imaging Last Impressions Chest X-Ray 06/04/16 8390 Signed Impressions: Service Date/Time: Saturday, June 04, 2016 04:22 - CONCLUSION: 1. No acute disease. Right Bftilu-w-Gpcb tip in superior vena cava. Fernando Jaime MD PE at Discharge GENERAL: Resting comfortably in bed. SKIN: Warm and dry. HEAD: Atraumatic. Normocephalic. EYES: Pupils equal and round. No scleral icterus. No injection or drainage. ENT: No nasal bleeding or discharge. Mucous membranes pink and moist. NECK: Trachea midline. No JVD. Fullness upon palpation appreciated. CARDIOVASCULAR: Regular rate and rhythm. No murmur. RESPIRATORY: No accessory muscle use. Mild rhonchi. GASTROINTESTINAL: Abdomen soft, non-tender, nondistended. Hepatic and splenic margins not palpable. MUSCULOSKELETAL: Extremities without clubbing, cyanosis, or edema. No obvious deformities. NEUROLOGICAL: Awake and alert. No obvious cranial nerve deficits. Motor grossly within normal limits. Five out of 5 muscle strength in the arms and legs. Normal speech. PSYCHIATRIC: Appropriate mood and affect; insight and judgment normal. Pt update on day of discharge The pt was feeling well and wanted to go home. He said he still has diarrhea but it is stable. He has been ambulating without difficulty. Discussed with nursing. Hospital Course Neutropenia with febrile illness Symptoms included nausea, vomiting and diarrhea. The pt has a history of squamous cell cancer at the base of the tongue. Oncology was consulted. He was continued on IVFs and broad spectrum antibiotics. Blood cultures have been negative. He was continued on Niaspan swish and swallow. His symptoms improved and he remained afebrile. He will follow up with oncology as an outpt. Pt Condition on Discharge: Good Discharge Disposition: Discharge Home Discharge Time: <= 30 minutes Discharge Instructions DIET: Follow Instructions for: As Tolerated, No Restrictions Speech Therapy-Diet Recommends: Soft Activities you can perform: Weight Bearing as Devon Follow up Referrals: Oncology - [address] Lindsay PCP Follow-up - 1 Week Continued Medications: Hydrocodone-Acetaminophen (Lortab) 5-325 Mg Tab 1 TAB PO Q4H PRN PAIN #12 TAB Inswebzv-Ugtiyujjzoypuci-Vdlyxkzgf Liq (Magic Mouthwash Adult Liq) 120 Ml Susp 10 ML SWISH-SWAL QID mucositis #180 ML Ruben Lowe DO Jun 06, 2016 09:32
[2016-06-06] MEDS: SODIUM CHLORIDE 0.9% FLUSH 5 ML FLUSH FLUSH SCH (10:00)
[2016-06-06] MEDS: NYSTATIN SUSP 500,000 U/5 ML CUP SWISH-SWAL SCH (10:00)
[2016-06-06] MEDS: HEPARIN SODIUM - SQ 10,000 UNITS/ML VIAL SQ SCH (10:00)
[2016-06-06 10:58] LABS: BANDS 56 % (0-6); DOHLE BODIES PRESENT (NONE SEEN); NEUTROPHIL # MANUAL DIFF 6.5 TH/MM3 (1.8-7.7); OVALOCYTES 1+ (NORMAL); POLYS (SEG NEUTROPHILS) 27 % (16-70); TOXIC GRANULATION 2+ (NORMAL); WBC DIFF SAMPLE 100
[2016-06-06 10:59] LABS: PLATELET ESTIMATE SMEAR NORMAL (NORMAL); PLATELET MORPHOLOGY NORMAL (NORMAL); SCAN/DIFF FINAL DIFF MANUAL
== END 2016-06-06 12:33 | disposition home or self-care (01) | DRG 809 ==
LOC: NEPC 03:58 → NEDA 06:09 → NEDH 09:49 → HOCA 12:56
PROVIDERS: ADMIT Hospitalist; ATTEND Hospitalist
DX: D70.9 Neutropenia, unspecified (principal); C79.89 Secondary malignant neoplasm of other specified sites; I95.9 Hypotension, unspecified; E87.1 Hypo-osmolality and hyponatremia; Z93.1 Gastrostomy status; C01 Malignant neoplasm of base of tongue; R00.0 Tachycardia, unspecified; B37.9 Candidiasis, unspecified; T45.1X5A Adverse effect of antineoplastic and immunosuppressive drugs, initial encounter; Z87.11 Personal history of peptic ulcer disease; Z87.891 Personal history of nicotine dependence
CPT/HCPCS: 71010; 80053; 80202; 82550; 83605; 83690; 83735; 83880; 84484; 85007; 85027; 85610; 85730; 87040; 87804; 93005; 96365; 96367; 96375; J1644; J2270; J2405; J2765; J3370; J7030; J7042; J7050

== ENCOUNTER 2016-12-26 07:31 | Day surgery (SDC) | payer MEDICAID ==
[~2016-12-26] VITALS: Ht 180.3 cm; Wt 68.6 kg
[~2016-12-26 07:31] MED LIST changes: -HYDR-3583 PO; -METR-1 PO; -PRED10 PO
[2016-12-26 07:50] VITALS: BP 105/66; PULSE 56; RESP 20; TEMP 97.7; O2SAT 99
[2016-12-26 08:40] LABS: APTT (PATIENT) 23.6 SEC (24.3-30.1); PROTHROMBIN TIME - PATIENT 11.3 SEC (9.8-11.6)
[2016-12-26] MEDS: VANCOMYCIN 1000 MG/NS 250 ML - implanted port/tunneled catheter IV SCH ×4 (10:00→11:28)
[2016-12-26] MEDS ORDERED: SODIUM CHLORIDE 0.9% 1000 ML IV SCH (10:00)
[2016-12-26] MEDS ORDERED: MIDAZOLAM HCL 2 MG/2 ML VIAL ONE (10:25)
--- NOTE | 2016-12-26 11:22 | PD.RAD ---
Post Procedure Progress Note Pre Procedure Diagnosis: (1) Head and neck cancer Post Procedure Diagnosis: (1) Head and neck cancer Procedure Date: Dec 26, 2016 Supervising Radiologist: Jose D Metzger Estimated blood loss: 3cc Anesthesia: Local, Conscious Sedation Plan of Activity Patient to Unit: ROPU Patient Condition: Good Additional Comments: Port removed from the right chest without difficulty. G tube removed without difficulty. Full dictated reports to follow See PACS Report for procedural detail/treatment Jose D Metzger MD Dec 26, 2016 11:22
[2016-12-26 11:30] VITALS: BP 97/62; PULSE 65; RESP 16; RESP 18; TEMP 97.5; O2SAT 96; O2SAT 99
[2016-12-26 11:45] VITALS: BP 98/60; PULSE 46; RESP 16; O2SAT 99
[2016-12-26 12:15] VITALS: BP 92/64; PULSE 45; RESP 16; O2SAT 99
--- NOTE | 2016-12-26 12:31 | RADRPT ---
EXAM DATE/TIME: 12/26/2016 09:02 [facility] COMPARISON: GASTROSTOMY TUBE [facility] W/US, April 25, 2016, 8:19. INDICATIONS : Patient presents with tongue cancer in need of port removal that is no longer needed for treatment. MEDICAL HISTORY : Neck and tongue cancer. Duodenal ulcer. SURGICAL HISTORY : G tube placement. Port placement. Tib-fib repair. Right hand surgery. ENCOUNTER: Subsequent ACUITY: 7-11 months PAIN SCORE: 0/10 LOCATION: N/A SEDATION TIME: 30 minutes 1.) 2 mg midazolam (Versed) IV 2.) 100 mcg fentanyl (Sublimaze) IV Prophylactic antibiotics were administered with appropriate pre-procedure timing. Vancomycin within 2 hrs of procedure, Ancef (or alternative) within 1 hr of procedure. PROCEDURE : 1. Removal of Jiaudn-o-onpc. 2. Conscious sedation with continuous EKG and oximetry monitoring. The risk, benefits and potential complications of Giugto-f-Lclo removal were discussed. Written conse nt was obtained. The patient was placed supine. The chest wall was prepped in sterile fashion. Full sterile techniqu e was used, including cap, mask, sterile gloves and gown, and a large sterile sheet. Hand hygiene an d 2% chlorhexidine and/or Betadine/alcohol prep was utilized per protocol for cutaneous antisepsis. The skin and subcutaneous tissues were infiltrated with local anesthetic solution. A small incision w as made, the subcutaneous pocket was opened. The port was dissected from the subcutaneous tissues and easily removed in one piece. The pocket incision was closed with subcuticular Vicryl suture. Steri -Strips were applied. Conscious sedation was performed with the prescribed dosages and duration as above in the presence of an independent trained radiology nurse to assist in the monitoring of the patient. EKG and oximetry remained stable throughout the procedure. The patient tolerated the procedure well and there were no complications. The patient was sent to post anesthesia recovery in stable condition. CONCLUSION: Uncomplicated port removal as above. Jose D Metzger MD on December 26, 2016 at 12:30 Board Certified Radiologist. This report was verified electronically.
--- NOTE | 2016-12-26 12:33 | RADRPT ---
EXAM DATE/TIME: 12/26/2016 09:03 [facility] COMPARISON: [id number] REMOVAL, W/O FLUORO, RIGHT, December 26, 2016, 9:02. INDICATIONS : Patient presents with tongue cancer in need of Gastrostomy tube removal. MEDICAL HISTORY : Tongue and neck cancer. Duodenal ulcer. SURGICAL HISTORY : Port placement. G tube placement. Tib Fib repair. Right hand surgery. ENCOUNTER: Subsequent ACUITY: 7-11 months PAIN SCORE: 0/10 LOCATION: N/A PROCEDURE : 1. gastrostomy tube removal. 2. Conscious sedation with continuous EKG and Oximetry monitoring. The risks, benefits and alternatives to the procedure were explained and verbal and written consent w as obtained. The site was prepped in sterile fashion. Full sterile technique was used, including ca p, mask, sterile gloves and gown and a large sterile sheet. Hand hygiene and 2% chlorhexidine prep w as utilized per protocol for cutaneous antisepsis with appropriate dry time for site. The skin and s ubcutaneous tissues were infiltrated with local anesthetic solution. The patient was RE sedated from Wegjgh-c-Odbl removal. The balloon on the tube was deflated. The tube was removed without difficulty. CONCLUSION: 1. Successful gastrostomy tube removal. Jose D Metzger MD on December 26, 2016 at 12:30 Board Certified Radiologist. This report was verified electronically.
[2016-12-26 12:45] VITALS: BP 91/58; PULSE 38; RESP 18; O2SAT 99
== END 2016-12-26 13:58 | disposition home or self-care (01) ==
LOC: HROP 07:31 → HRIP 07:32 → HROP 13:58
PROVIDERS: ATTEND Internal Medicine Hematology & Oncology
DX: Z45.2 Encounter for adjustment and management of vascular access device (principal); C02.9 Malignant neoplasm of tongue, unspecified; Z01.812 Encounter for preprocedural laboratory examination
CPT/HCPCS: 36590; 85610; 85730; 99152; 99153; 99213; J2250; J3010; J3370; J7030; J7050; G0463